=== PATIENT | female | born 1950 | race Caucasian/White ===

== ENCOUNTER → 2023-06-19 07:26 | Outpatient (REF) | payer MEDICARE, SELFPAY | LOC: PAVMRI 07:26 | PROVIDERS: ATTENDING PHYSICIAN Physician Assistant Surgical; FAMILY PHYSICIAN Internal Medicine | DX: M54.50 Low back pain, unspecified (principal) | CPT/HCPCS: 72148 ==

== ENCOUNTER 2023-07-20 16:08 | Emergency (ER) | payer MEDICARE, SELFPAY ==
[2023-07-20] VITALS (7 sets, daily range): BP systolic 148–172; BP diastolic 69–92; BMI 33.6
[2023-07-20 16:58] LABS: ALT (SGPT) 19 U/L (0-35); AST (SGOT) 30 U/L (14-36); Albumin 4.5 g/dl (3.5-5.0); Alkaline Phosphatase 44 U/L (38-126); Blood Urea Nitrogen 18 mg/dl (7-17); Calcium 9.2 mg/dl (8.4-10.2); Carbon Dioxide 19 mmol/L (22-30); Chloride 109 mmol/L (98-107); Estimated Creatinine Clearance 51 ml/min; Glucose 98 mg/dl (70-99); Sodium 138 mmol/L (135-145); Total Bilirubin 0.8 mg/dl (0.2-1.3); Total Protein 7.1 g/dl (6.3-8.2); eGFR 58.75
[2023-07-20 17:08] LABS: Troponin I < 0.012 ng/ml
[2023-07-20 17:09] LABS: % Basophils 0.7 % (0-2); % Eosinophils 1.5 % (0-6); % Immature Granulocytes 0.2 % (0-0.5); % Lymphocytes 39.7 % (20.5-51.1); % Monocytes 6.6 % (1.7-9.3); % Neutrophils 51.3 % (42.2-75.2); Absolute Basophils 0.1 10^3/uL (0-0.2); Absolute Eosinophils 0.1 10^3/uL (0-0.7); Absolute Lymphocytes 3.4 10^3/uL (1.2-3.4); Absolute Monocytes 0.6 10^3/uL (0.1-0.6); Absolute Neutrophils 4.4 10^3/uL (1.4-6.5); Hematocrit 42.9 % (37.0-47.0); Hemoglobin 14.8 g/dL (12.0-16.0); Mean Corp Hgb Conc. 34.5 g/dL (33.0-37.0); Mean Corpuscular Hgb 30.3 pg (27.0-31.0); Mean Corpuscular Volume 87.7 fL (81.0-99.0); Mean Platelet Volume 8.9 fL (7.4-10.4); Nucleated Red Blood Cells % 0 %; Platelet Count 425 10^3/uL (130-400); Red Blood Cell Count 4.89 10^6/uL (4.20-5.40); Red Cell Dist. Width 14.1 % (11.5-14.5); White Blood Cell Count 8.5 10^3/uL (4.8-10.8)
[2023-07-20] MEDS: CARAFATE SUSPENSION 1 GM PO ×2 (17:34→23:03)
--- NOTE | 2023-07-20 20:34 | ED.GENMED ---
History of Present Illness
<DO Dez Montoya Last Filed: 07/20/23 20:38>
General
Chief Complaint: Chest Pain
Source: patient
Time Seen by Provider: 07/20/23 16:28
Travel History
Have you had any contact with someone who has COVID-19?: No
Do you have any symptoms of coronavirus? Fever > 100 degrees, chills, cough, shortness of breath, sore throat, loss of taste or smell, muscle aches, or headache?: Yes
Symptoms:: SOB
History of Present Illness
History of Present Illness:
73-year-old female with a history of coronary disease as well as esophageal spasms who presents with chest pain that began on . The patient states at home she has tried Tums and nitroglycerin without relief. She states she continues to
feel this pressure in her chest. She states she first feels at her teeth and then noticed that her chest. She even went to the dentist to have her teeth checked and was told that it was normal. Today the symptoms persisted. No vomiting. No
shortness of breath.
Past History
<DO Dez Montoya Last Filed: 07/20/23 20:38>
Past History
ED Past Medical History: CAD (Vasospasm), GERD, HTN, Hypercholesterolemia, MA (Non-STEMI November 2014, cardiac cath showing nonobstructive coronary artery disease.), Hypothyroidism and Other (Osteoporosis, meningioma, Paresthesia,); Negative Asthma or
NIDDM
ED Past Surgical History: Cardiac (Cardiac catheterization November 2014 showing nonobstructive coronary artery disease.), Cholecystectomy and Other (Thyroidectomy, Minor breast surg)
Social History
Tobacco: Former smoker
Alcohol: Occasional
Drug: None
Personal:
Living: with family
Employment: Not employed
Family History
Family History: CAD; Negative Early CAD
Phy Exam
<DO Dez Montoya Last Filed: 07/20/23 20:38>
Physical Exam
Physical Exam:
CONSTITUTIONAL Patient alert and oriented to person, place and time. Well-appearing. Vital signs reviewed.
HEAD atraumatic, normocephalic.
EYES eyelids normal to inspection, Pupils equally round and reactive to light, Extraocular muscles intact, Conjunctiva normal, Sclera normal.
NECK normal range of motion, Trachea midline, no jugular venous distention.
RESPIRATORY CHEST No respiratory distress noted, Chest expansion equal, Bilateral breath sounds clear.
CARDIOVASCULAR regular rate and rhythm, Heart sounds normal.
ABDOMEN abdomen nontender, Bowel sounds normal. No distention.
BACK normal inspection, no obvious deformities
UPPER EXTREMITY range of motion normal, Motor strength normal, no cyanosis, no edema.
LOWER EXTREMITY range of motion normal, Motor strength normal, no cyanosis, no edema.
NEURO Speech normal, No focal motor deficits, Tavia coma scale 15, Memory normal, Cranial Nerves intact to screening exam.
SKIN skin warm, dry, and normal in color.
PSYCHIATRIC patient oriented to person place and time, Normal affect.
<Anitra Zheng, DO - Last Filed: 07/21/23 02:31>
Heart Score for Chest Pain Patients
STEMI patient?: No
History: Slightly or Non-Suspicious
ECG: Normal
Age: >/= 65 years
Risk Factors: >/= 3 Risk Factors or History of CAD
Troponin: </= Normal Limit
Heart Score for Chest Pain Patients: 4
Heart Score Risk: 20.3% MACE over next 6 weeks
Course
<Steven Loera, DO - Last Filed: 07/20/23 20:38>
Orders/Labs/Results
Orders:
Orders
07/20/23 16:09
Electrocardiogram (*1) Urgent
Reason for Study: Chest Pain
07/20/23 16:10
EKG- Treatment ONCE
07/20/23 16:30
Comprehensive Metabolic Panel Urgent
Troponin I Urgent
07/20/23 17:02
Complete Blood Count/With Diff Urgent
07/20/23 17:22
Sucralfate Suspension [Carafate Suspension] 1 gm PO NOW STA
07/20/23 17:23
CR Chest - 2 Views Urgent
Comment:
Reason For Exam: cp
07/20/23 18:37
CT Chest With Iv Contrast Urgent
Comment:
Reason For Exam: abnormal CXR, cavitary lesions, cp
07/20/23 22:33
Sucralfate Suspension [Carafate Suspension] 1 gm PO NOW STA
Abnormal Lab Results
07/20/23 07/20/23
16:30 17:02
Plt Count 425 H 10^3/uL
(130-400)
Chloride 109 H mmol/L
(98-107)
Carbon Dioxide 19 L mmol/L
(22-30)
BUN 18 H mg/dl
(7-17)
07/20/23 17:02
07/20/23 16:30
Vital Signs
Initial and Last Documented VS:
Initial Vital Signs
Temp Pulse Resp Pulse Ox
97.5 F 71 13 100
07/20/23 16:12 07/20/23 16:12 07/20/23 16:12 07/20/23 16:12
Last Documented Vital Signs
Temp Pulse Resp BP Pulse Ox
97.5 F 70 17 167/90 99
07/20/23 16:12 07/20/23 23:00 07/20/23 23:00 07/20/23 23:00 07/20/23 22:30
<Anitra Zheng, DO - Last Filed: 07/21/23 02:31>
Orders/Labs/Results
Orders:
Orders
07/20/23 16:09
Electrocardiogram (*1) Urgent
Reason for Study: Chest Pain
07/20/23 16:10
EKG- Treatment ONCE
07/20/23 16:30
Comprehensive Metabolic Panel Urgent
Troponin I Urgent
07/20/23 17:02
Complete Blood Count/With Diff Urgent
07/20/23 17:22
Sucralfate Suspension [Carafate Suspension] 1 gm PO NOW STA
07/20/23 17:23
CR Chest - 2 Views Urgent
Comment:
Reason For Exam: cp
07/20/23 18:37
CT Chest With Iv Contrast Urgent
Comment:
Reason For Exam: abnormal CXR, cavitary lesions, cp
07/20/23 22:33
Sucralfate Suspension [Carafate Suspension] 1 gm PO NOW STA
Abnormal Lab Results
07/20/23 07/20/23
16:30 17:02
Plt Count 425 H 10^3/uL
(130-400)
Chloride 109 H mmol/L
(98-107)
Carbon Dioxide 19 L mmol/L
(22-30)
BUN 18 H mg/dl
(7-17)
07/20/23 17:02
07/20/23 16:30
Vital Signs
Initial and Last Documented VS:
Initial Vital Signs
Temp Pulse Resp Pulse Ox
97.5 F 71 13 100
07/20/23 16:12 07/20/23 16:12 07/20/23 16:12 07/20/23 16:12
Last Documented Vital Signs
Temp Pulse Resp BP Pulse Ox
97.5 F 70 17 167/90 99
07/20/23 16:12 07/20/23 23:00 07/20/23 23:00 07/20/23 23:00 07/20/23 22:30
<Steven Loera DO - Last Filed: 07/20/23 20:38>
MDM/Problems Addressed
MDM/Problems Addressed:
Chest pain
<Steven Loera DO - Last Filed: 07/20/23 20:38>
*Radiology
Radiology exam reviewed: radiology read reviewed
*Pulse Oximetry
Patient hypoxic: no
*EKG
Interpreted by ED Provider?: Yes
Interpretation: normal
Rate: normal
Rhythm: sinus
Interval: normal interval
QRS Pattern: normal QRS
Ischemia: no ischemia
*Product Marketing Engineer Interpretation
Rate: normal
Interpretation: normal
Rhythm: sinus
*Critical Care Note
Total Time (30-74mins, 75-104mins- exclusive of procedures): Not Applicable
Data Reviewed
Source: patient
Prescriptions/Medications Considered But Not Given:
Consider nitroglycerin but do not suspect ACS
<Steven Loera, DO - Last Filed: 07/20/23 20:38>
Patient Management
Discussion with other providers: Radiologist (Case discussed with radiology. Given chest x-ray finding recommended CT)
Escalation/DeEscalation of care consider admission/obs:
Troponin negative despite several days of chest pain. EKG unremarkable. Symptoms mildly improved after Carafate. Await CT in light of abnormal chest x-ray. s/o to Dr Zheng pending CT
<Anitra Zheng DO - Last Filed: 07/21/23 02:31>
Update Note
Update Note:
07/20/2023 22:[address] of the chest shows a 1.8 cm solid pulmonary nodule in the right lung apex with adjacent groundglass component which is new compared to previous CT April 2006.
Diagnostic possibilities a right upper lobe lung cancer versus scarring versus pneumonia. There is no evidence of lymphadenopathy.
Patient has not had a cough nor fever, normal white blood cell count thus pneumonia is unlikely.
Current lower substernal chest pain appears more consistent with acid reflux and patient admits to moderate improvement after Carafate. I suspect the right upper lobe mass is an incidental finding and not related to lower substernal chest pain.
With ongoing chest pain for a number of days, unremarkable EKG and negative troponin, ACS is unlikely.
Patient has recently resumed twice daily PPI and recommend short course of Carafate which she has been prescribed in the past.
As far as pulmonary nodule, patient will require outpatient follow-up for further evaluation. As per radiologist report, pulmonary nodule advisory board hotline has been notified with these findings and I have recommended the patient follow-up with
her PCP, Dr. Sam as well.
She has been provided with a copy of the CT report as well as lab results.
ED Attending Note
<Steven Loera DO - Last Filed: 07/20/23 20:38>
-
Portions of this chart may have been created with voice recognition software.� Occasional wrong word or��sound alike� substitutions may have occurred due to the inherent limitations of voice recognition software.
Discharge Plan
Departure
Patient Disposition: Home (Routine Discharge)
Date of Disposition: 07/20/23
Time of Disposition: 22:42
Patient with high blood pressure during this ER visit?: No
Condition: Good
Discharge Problem:
Nonspecific chest pain, Esophageal reflux, RUL pulmonary nodule
Instructions: Acid Reflux and GERD in Adults (DC), Chest Pain DCA Follow Up
Prescriptions:
New
sucralfate [Carafate] 1 gram tablet
1 g PO QIDPRN PRN (Reason: acid reflux/chest pain) Qty: 120 0RF
No Action
levothyroxine 125 MCG tablet
150 mcg PO DAILY@1500
polyethylene glycol 3350 17 GRAMS powder in packet
17 grams PO DAILYPRN PRN (Reason: constipation)
psyllium husk (aspartame) [Metamucil Fiber Singles] 1 PACKET powder in packet
1 packet PO DAILYPRN PRN (Reason: constipation)
atorvastatin 40 MG tablet
40 mg PO QPM Qty: 30 11RF
pantoprazole 40 MG tablet,delayed release (DR/EC)
40 mg PO DAILY Qty: 30 11RF
ascorbic acid (vitamin C) [Vitamin C] 500 MG tablet
500 mg PO QPM
coenzyme Q10 [Co Q-10] 30 MG capsule
30 mg PO QPM
multivitamin with folic acid [Tab-A-Tuan] 1 TABLET tablet
1 tab PO QPM
zolpidem 10 MG tablet
10 mg PO HS
Patient Comments:
patient picker/puller on 12/18/20 #90
nitroglycerin 0.4 MG tablet, sublingual
0.4 mg sublingual [id number] PRN (Reason: chest pain) Qty: 30 1RF
Rx Instructions:
Please be cautious of taking nitro while on imdur.
ipratropium bromide 1 SPRAY spray,non-aerosol
2 spray intranasal TID
isosorbide mononitrate 60 MG tablet extended release 24 hr
60 mg PO HS
sennosides [senna] 1 TABLET tablet
1 tab PO DAILYPRN PRN (Reason: constipation)
lorazepam 1 MG tablet
1 mg PO [id number] PRN (Reason: anxiety or sleep)
Patient Comments:
patient picker/puller on 01/03/21 #90
acetaminophen 325 MG tablet
650 mg PO Q4HPRN PRN (Reason: mild pain)
sucralfate 1 GRAM tablet
1 g PO ACHS
ibuprofen 400 MG tablet
400 mg PO Q4HPRN PRN (Reason: mild pain)
alum-mag hydroxide-simeth [Mylanta Maximum Strength] 355 ML suspension
15 ml PO BIDPRN PRN (Reason: gerd)
aspirin 81 MG tablet,chewable
81 mg PO QPM
Referrals:
Arnaldo Boyer MD [Family Provider] - Call in 1-3 days for appt
Interventions
Interventions:
*Risk Screen - Suicide Last Done: 07/20/23 16:25
*General Assessment Last Done: 07/20/23 16:25
*Neglect/Abuse Screening Last Done: 07/20/23 16:25
ED- Fall Risk Assessment Last Done: 07/20/23 16:29
*ED COVID-19 Vaccine History Last Done: 07/20/23 16:25
*Nursing Disposition Last Done: 07/20/23 23:05
ED- Cardiac Assessment Last Done: 07/20/23 16:25
Discharge Date and Time
Discharge Date/Time: 07/20/23 23:06
== END 2023-07-20 23:06 | disposition home or self-care (01) ==
LOC: EMR 16:08
PROVIDERS: EMERGENCY PHYSICIAN Emergency Medicine; FAMILY PHYSICIAN Internal Medicine
DX: R07.9 Chest pain, unspecified (principal); R91.1 Solitary pulmonary nodule; K21.9 Gastro-esophageal reflux disease without esophagitis; Z87.891 Personal history of nicotine dependence
CPT/HCPCS: 99285; 71046; 71260; 80053; 84484; 85025; 93005; Q9967

== ENCOUNTER 2023-08-05 06:33 | Day surgery (SDC) | payer MEDICARE, SELFPAY ==
[2023-07-30 12:19] VITALS: BMI 32.7
[2023-08-05] VITALS (12 sets, daily range): BP systolic 124–149; BP diastolic 64–116; BMI 32.2
[2023-08-05] MEDS: MORPHINE SULFATE 1 MG IV ×2 (15:26→15:32)
[2023-08-05] MEDS: PHENERGAN WITH CODEINE SYRUP 5 ML PO (17:47)
[2023-08-05] MEDS: LIDOCAINE 4% PATCH 1 PATCH TOPICAL (17:51)
== END 2023-08-05 18:03 | disposition home or self-care (01) ==
LOC: SDS 06:33
PROVIDERS: ATTENDING PHYSICIAN Internal Medicine Critical Care Medicine
DX: D38.1 Neoplasm of uncertain behavior of trachea, bronchus and lung (principal); R91.1 Solitary pulmonary nodule; R06.02 Shortness of breath
CPT/HCPCS: 31629; 31623; 31652; 31627; 31624; 31654; 88172; 88173; 88305; 71045; 76000; 87015; 87070; 87102; 87116; 87205; 88112; 88177; 88333; 88334; 94640; C1887

== ENCOUNTER 2023-09-02 09:21 | Inpatient (IN) | payer MEDICARE, SELFPAY ==
[2023-08-27 08:37] VITALS: BMI 33.2
[2023-08-27 09:22] LABS: % Basophils 1.1 % (0-2); % Eosinophils 2.4 % (0-6); % Immature Granulocytes 0.5 % (0-0.5); % Lymphocytes 41.8 % (20.5-51.1); % Monocytes 8.3 % (1.7-9.3); % Neutrophils 45.9 % (42.2-75.2); Absolute Basophils 0.1 10^3/uL (0-0.2); Absolute Eosinophils 0.2 10^3/uL (0-0.7); Absolute Lymphocytes 3.5 10^3/uL (1.2-3.4); Absolute Monocytes 0.7 10^3/uL (0.1-0.6); Absolute Neutrophils 3.9 10^3/uL (1.4-6.5); Hematocrit 42.2 % (37.0-47.0); Hemoglobin 14.4 g/dL (12.0-16.0); Mean Corp Hgb Conc. 34.1 g/dL (33.0-37.0); Mean Corpuscular Hgb 30.3 pg (27.0-31.0); Mean Corpuscular Volume 88.7 fL (81.0-99.0); Mean Platelet Volume 10.4 fL (7.4-10.4); Nucleated Red Blood Cells % 0 %; Platelet Count 305 10^3/uL (130-400); Red Blood Cell Count 4.76 10^6/uL (4.20-5.40); Red Cell Dist. Width 13.5 % (11.5-14.5); White Blood Cell Count 8.4 10^3/uL (4.8-10.8)
[2023-08-27 09:36] LABS: Urine Albumin Negative (Neg - Trace); Urine Bilirubin Negative (Negative); Urine Character Clear (Clear); Urine Glucose Negative (Negative); Urine Ketone Negative (Negative); Urine Leukocyte Negative (Negative); Urine Nitrite Negative (Negative); Urine Occult Blood Trace (Negative); Urine Urobilinogen Negative (Neg - 1+)
[2023-08-27 09:37] LABS: Urine Color Yellow
[2023-08-27 09:53] LABS: Urine Amorphous Seen; Urine Squamous Cell 0-2 /LPF (Few)
[2023-08-27 09:54] LABS: Urine Red Blood Cell 0-2 /HPF (0-2); Urine White Cell 0-2 /HPF (0-5)
[2023-08-27 10:10] LABS: INR 1.02; PT 13.4 Sec (11.4-14.6)
[2023-08-27 10:11] LABS: APTT 26.3 Sec (23.4-35.0)
--- NOTE | 2023-08-27 10:40 | CM ---
CM met w/ patient during PATs for planned CT Surgery 09/01.
Pt. resides w/ spouse in a private, 2 story home. Functionally, patient is indep. w/ ADLs, mobility without the use of any assisted device.
Pt. drives.
Pt. has Rx plan and uses [facility] in [place] for prescription needs.
Reviewed pre and post op routines.
Soap, shower instructions and Thoracic book provided.
Discussed post op restrictions.
Reviewed post op MD appointment and visit from CT Transitional Care RN.
Plan for CT Surgery 09/01.
Anticipated DC plan is for home w/ CT Transitional Care RN.
CM to follow.
[2023-08-27 11:00] LABS: ALT (SGPT) 19 U/L (0-35); AST (SGOT) 24 U/L (14-36); Albumin 4.3 g/dl (3.5-5.0); Alkaline Phosphatase 50 U/L (38-126); Blood Urea Nitrogen 25 mg/dl (7-17); Calcium 9.4 mg/dl (8.4-10.2); Carbon Dioxide 26 mmol/L (22-30); Chloride 106 mmol/L (98-107); Direct Bilirubin 0.3 mg/dl (0.0-0.4); Estimated Creatinine Clearance 41 ml/min; Glucose 96 mg/dl (70-99); Potassium 4.4 mmol/L (3.5-5.1); Sodium 137 mmol/L (135-145); Total Bilirubin 0.8 mg/dl (0.2-1.3); Total Protein 6.6 g/dl (6.3-8.2); eGFR 47.21
[2023-08-27 11:58] LABS: Glycohemoglobin (HgbA1c) 5.6 % (4.0-5.6)
[2023-09-02] VITALS (17 sets, daily range): BP systolic 118–146; BP diastolic 57–94; BMI 33.2
--- NOTE | 2023-09-02 10:59 | W.CVOR.SURPR ---
CVOR Surgeon Immed Pre Op
-
I have examined this patient prior to performance of the scheduled procedure.
The patient's condition is unchanged from the time of the dictated/written History and
Physical and the patient is able to undergo the scheduled procedure.
RATS RUL + LN Dissection
[2023-09-02] MEDS: ANCEF IV (13:10)
[2023-09-02 13:16] LABS: Urine Albumin Negative (Neg - Trace); Urine Bilirubin Negative (Negative); Urine Character Clear (Clear); Urine Color Yellow; Urine Glucose Negative (Negative); Urine Ketone Negative (Negative); Urine Leukocyte Negative (Negative); Urine Nitrite Negative (Negative); Urine Occult Blood Negative (Negative); Urine Specific Gravity 1.005 (<1.030); Urine Urobilinogen Negative (Neg - 1+)
--- NOTE | 2023-09-02 15:50 | W.PN.CT.SURG ---
CT Surgery Operative Note
-
THORACIC SURGERY OPERATIVE REPORT
Preoperative Diagnosis: Atypical cells highly suspicious for malignancy of the right upper lobe lesion
Postoperative Diagnosis: Same
Procedure(s) Performed:
1. Robotic assisted thoracic surgery (RATS) right upper lobectomy
2. Radical lymph node dissection
3. Cryoablation of intercostal spaces 4, 5, 6, 7 for 3 minutes each
4. Intercostal nerve block with bupivacaine mixture, intercostal spaces 4, 5, 6, 7, 8
Date of Surgery: 09/02/2023
Comorbidities:
1. Right upper lobe mass with groundglass opacity, atypical cells highly suspicious for malignancy
2. Meningioma
3. Multinodular goiter status post subtotal thyroidectomy
4. GERD
5. Osteoporosis
6. NSTEMI, CAD
7. Hyperlipidemia
8. Hypertension
9. Morbidly obese with a BMI greater than 30
10. History of COVID infection
11. Chronic Intercostal Pain
Attending Surgeon: Adan Rainey MD, MS
Assistants: Argelia Freire PA-C (present and necessary to communications assistant, exchanging robotic instruments, retraction, suction, exposure, suture management, and wound closure under my direction)
Anesthesiology: George Green MD and Lisa Ayoub CRNA
Scrub and Circulating RNs: Patricia Correa, RN and Bethanie Valencia, RN, Peggy Durbin RN and Radha Thorne RN
Anesthesia: Dual Lumen GETA
EBL: 80 cc
Products: None
Indication(s) for Procedures: This is a 73-year-old female with a history of right upper lobe nodule with groundglass opacity. She underwent robotic endoluminal bronchoscopy which returned with atypical cells hide suspicious for malignancy. Due to
the size of the mass, she was offered right lobectomy with lymph dissection due to the level of suspicion of malignancy. She accepted those risk and so we proceeded.
Findings: Overall, no gross evidence of metastatic disease in the right hemithorax she had a poorly developed fissure between the right upper lobe and right middle lobe. The fissure between the right upper lobe and right lower lobe was moderately
developed. Intercostal nerve block was performed with 5 cc of bupivacaine mixture at the listed intercostal spaces. Cryoablation of the intercostal nerves was also performed in order to help with pain control postoperatively. Several lymph nodes
were taken from various stations. At the developed a fissure between the right upper and right lower lobes using bipolar cautery and vessel sealer as there were numerous branching vessels that bridge the fissure. The space between the right upper
and right middle lobe was developed using green load staplers directed towards the branch point of the right upper lobe and right middle lobe veins. After dividing the vein and opening of the fissure I was able to isolate the truncus pulmonary
artery branch leading to the right upper lobe. This was transected with a white load stapler. This left just the right upper lobe bronchus. This was developed more distally and then clamped and an inflation test was performed which demonstrated
unobstructed flow to the remaining right middle and right lower lobes. This was transected with a green load stapler. A bubble study was performed after filling the chest with saline and several areas of raw parenchyma had minor air leaks. This
was reinforced with CoSeal x 2 layers. At the inclusion of the case, there was no significant tidal volume loss and very intermittent +1 air leak while on positive pressure ventilation.
Specimen(s):
Station 9, x 2 nodes
Station 8, x 1 nodes
Station 10, x 1 nodes
Station 11, x 3 nodes
Station 4, x 4 nodes
Station 7, x 3 nodes
Right upper lobe
Description of Procedure: The patient was taken to the operating room. Induction via general anesthesia with endotracheal intubation was performed and peripheral venous access and arterial monitoring were inserted. Their identity and procedure to be
performed were verified and they were positioned with the right side up on the operating table. The patient was then prepped and draped in a sterile fashion. A preoperative time-out was performed with all members of the team present. A Veress
needle was used to insufflate the chest after isolating the lung. An 8 mm port was placed in the midaxillary line at approximately the eighth intercostal space and confirmed to be intrathoracic without significant pulmonary injury. The chest was
surveyed for any evidence of metastatic disease. Patient tolerate insufflation without complication. 2 additional 12 mm trocars were placed on either side under camera guidance and a third 8 mm trocar was placed along the back. A 12 mm miller head assistant wet process
port was placed in the 11th intercostal space above the insertion of the diaphragm. An intercostal nerve block was performed at intercostal spaces 4 through 8.
The thoracic cavity was inspected for evidence of metastatic disease. None was observed. We started with mobilization of the inferior pulmonary ligament. We worked our way clockwise dissecting out the hilum and harvest any lymph nodes identified.
As described above, the fissures were poorly developed. I had to develop the patient between the right upper lobe using a combination of bipolar cautery and vessel sealer. I then created the fissure between the right upper and right middle lobe
using green load staplers firing towards the bifurcation of the right upper lobe right middle lobe veins. The pulmonary veins were first divided with white load staplers followed by isolation of the major truncus pulmonary artery leading to the
right upper lobe the pulmonary arteries again using a white load stapler. I clamped the bronchus and performed a test inflation which demonstrated unobstructed flow into the remaining right middle and lower lobes. The specimen was displaced toward
the apex while a chest tube was inserted and placed laterally towards the apex. At this point cryoablation was performed at the base listed above. A bubble test was performed to identify any air leaks. CoSeall was used to reinforce the staple
lines, raw parenchyma and hilum. The right upper lobe was then placed into a specimen bag and extracted from the chest cavity. After confirming hemostasis, the lung was fully inflated and all ports were removed. The right middle lobe was
visualized to be inflating and not torsed. Incisions were closed in 3 layers including the fascia, dermal, and epidermis. Additional local anesthesia was injected into all incision sites. The skin wound was cleansed and sealed with Dermabond glue.
All instrument, sponge, and needle counts were confirmed to be correct x 2 at the end of the operation. The patient was transferred to the cardiac intensive care unit extubated in critical but stable condition.
I, Dr. Adan Raieny, was present, scrubbed for, and performed all critical elements of this procedure.
Adan Rainey MD, MS
Cardiothoracic Surgeon
[facility]
This operative dictation was created using the [employer] dictation system. Please excuse any grammatical, typographical, or 'sound alike' errors
[2023-09-02] MEDS: DILAUDID 0.5 MG IV ×3 (16:22→18:08)
[2023-09-02 17:15] LABS: Hematocrit 39.1 % (37.0-47.0); Hemoglobin 13.5 g/dL (12.0-16.0); Mean Corp Hgb Conc. 34.5 g/dL (33.0-37.0); Mean Corpuscular Volume 89.7 fL (81.0-99.0); Mean Platelet Volume 8.9 fL (7.4-10.4); Platelet Count 414 10^3/uL (130-400); Red Blood Cell Count 4.36 10^6/uL (4.20-5.40); Red Cell Dist. Width 13.2 % (11.5-14.5); White Blood Cell Count 17.3 10^3/uL (4.8-10.8)
[2023-09-02 17:37] LABS: Blood Urea Nitrogen 17 mg/dl (7-17); Calcium 8.4 mg/dl (8.4-10.2); Carbon Dioxide 25 mmol/L (22-30); Chloride 105 mmol/L (98-107); Estimated Creatinine Clearance 55 ml/min; Glucose 167 mg/dl (70-99); Potassium 4.1 mmol/L (3.5-5.1); Sodium 135 mmol/L (135-145); eGFR > 60.00
[2023-09-02] MEDS: ANCEF 10 IV (17:48)
[2023-09-02] MEDS: TORADOL 15 MG IV (17:53)
[2023-09-02] MEDS: NEURONTIN 300 MG PO ×2 (18:11→22:45)
[2023-09-02] MEDS: PERCOCET 5/325 1 TABLET PO (18:11)
[2023-09-02] MEDS: FLEXERIL 5 MG PO ×2 (18:12→22:45)
[2023-09-02] MEDS: HEPARIN 5000 UNITS SC ×2 (18:21→23:06)
--- NOTE | 2023-09-02 19:15 | PTCARENOTE ---
Rec'd pt from PACU into room 2240. Pt c/o pain. Toradol given and Oxycodone given. Pt with Rt posterior chest tube to -20cm suction with minimum bloody drainage. No air leak noted. Pt on 4l n/c oxygen. Pulse ox 97. Admission history obtained from
patients and daughter. See worklist for VS/I and O and assessments.
[2023-09-02] MEDS: LOPRESSOR 12.5 MG PO (19:51)
[2023-09-02] MEDS: SENOKOT-S 1 TABLET PO (19:52)
[2023-09-02] MEDS: ANCEF 5 IV (19:52)
[2023-09-02] MEDS: BUSPAR 10 MG PO (19:52)
[2023-09-02] MEDS: LIDOCAINE 4% PATCH 1 PATCH TOPICAL (21:00)
--- NOTE | 2023-09-02 21:20 | PTCARENOTE ---
Pt AOX3. Drowsy but arousable to voice. Closed chest tube drainage system to wall suction at -20cm w/ serosanguinous drg. Air leak level one noted. No crepitus/tidaling noted. Dsg is intact w/ a small amt of old drg noted. Gilberto BARR at bedside. Pt
c/o pain at CT site 01/11. Lidocaine patch ordered per Gilberto and applied to back. Pt w/ shallow breaths and sating at 100% 6L O2 NC. Currently resting in bed; call rain w/in reach.
[2023-09-02] MEDS: CARAFATE 1 GRAM PO (22:44)
[2023-09-02] MEDS: ROXICODONE 5 MG PO (22:44)
[2023-09-02] MEDS: AMBIEN 5 MG PO (22:45)
[2023-09-03] VITALS (8 sets, daily range): BP systolic 97–159; BP diastolic 52–84
[2023-09-03] MEDS: TYLENOL 650 MG PO (03:28)
[2023-09-03] MEDS: ANCEF 5 IV ×2 (03:29→11:12)
[2023-09-03 03:40] LABS: Hematocrit 40.1 % (37.0-47.0); Hemoglobin 13.4 g/dL (12.0-16.0); Mean Corp Hgb Conc. 33.4 g/dL (33.0-37.0); Mean Corpuscular Hgb 30.7 pg (27.0-31.0); Mean Platelet Volume 9.1 fL (7.4-10.4); Platelet Count 417 10^3/uL (130-400); Red Blood Cell Count 4.36 10^6/uL (4.20-5.40); Red Cell Dist. Width 12.9 % (11.5-14.5); White Blood Cell Count 15.1 10^3/uL (4.8-10.8)
--- NOTE | 2023-09-03 03:43 | PTCARENOTE ---
Pt OOB to bedside commode w/ 3 person assist. Gilberto BARR at beside. Pt voided 250cc clear yellow urine. C/o pain at CT site 10/11. Tylenol administered. Weaned O2 to 2L NC sating at 100%. Labs drawn and sent. EKG obtained. Pt back in bed; call rodrigez
w/in reach.
[2023-09-03 04:01] LABS: Blood Urea Nitrogen 18 mg/dl (7-17); Calcium 8.8 mg/dl (8.4-10.2); Carbon Dioxide 25 mmol/L (22-30); Chloride 104 mmol/L (98-107); Estimated Creatinine Clearance 55 ml/min; Glucose 130 mg/dl (70-99); Potassium 4.8 mmol/L (3.5-5.1); Sodium 134 mmol/L (135-145); eGFR > 60.00
--- NOTE | 2023-09-03 06:13 | W.PN.CT ---
Today's Communication / Plan
-
-pod #1
-no issues overnight
-R pleur CT output 40/90 in 12/24 hrs, on -20 suction. + air leak noted while sitting on commode
-follow daily CXR- small R apical PTX, some subq emphysema on my review - improved from 09/01- follow Radiology report
-sq Heparin for DVT prophylaxis
-current meds (ASA, Lipitor, Lopressor, Imdur, Protonix). Neurontin, Flexeril, Shirley, Toradol for pain control
-encourage IS, OOB
Assessment / Plan
-
- Atypical cells highly suspicious for malignancy of the right upper lobe lesion- s/p Robotic assisted thoracic surgery (RATS) right upper lobectomy; Radical lymph node dissection by Dr. Rainey on 09/02/23, pod #1
- Right upper lobe mass with ground glass opacity, atypical cells highly suspicious for malignancy
- Meningioma
- Multinodular goiter- status post subtotal thyroidectomy
- GERD
- Osteoporosis
- NSTEMI, CAD, hx coronary artery spasm
- Hyperlipidemia
- Hypertension
- Class 1 obesity (BMI 33)
- Chronic thrombocytosis
- History of COVID infection
- Chronic Intercostal Pain/ Cervical disc dz
- Hx diverticulitis, constipation
- Cholecystectomy 1996
- Anxiety
Discussed patient care with: Nursing and Care Team
Subjective
Procedure
s/p Robotic assisted thoracic surgery (RATS) right upper lobectomy; Radical lymph node dissection by Dr. Rainey on 09/02/23
-
Date of Service: September 03, 2023
Objective Data
-
PT 13.4 Sec (11.4-14.6) 08/27/23 08:58
INR 1.02 08/27/23 08:58
APTT 26.3 Sec (23.4-35.0) 08/27/23 08:58
Vital Signs
Vital Signs
Temp Pulse Resp BP Pulse Ox
97.6 F 72 16 136/75 98
09/02/23 23:00 09/02/23 21:15 09/02/23 23:00 09/02/23 21:00 09/02/23 23:00
CT Intake/Output/Weight
09/02/23 09/02/23 09/03/23
06:59 18:59 06:59
Intake Total 920 / 920
Balance 920 / 920
SaO2: 98
Physical Exam
-
General: Awake and AOx3
Cardiovascular: No Murmurs and No Rub
Respiratory: Decreased Breath Sounds (at bases, + crackles on R side. No wheeze)
Incision: Clean, Dry and Dressing Intact
Extremities: Other (trace edema b/l, 2+ DP)
Data Reviewed
-
Lab Results: Results Reviewed
Medications: Active Meds Reviewed
Chest X-Ray: Report Reviewed and Image Reviewed
ECG: Report Reviewed and Image Reviewed
[2023-09-03] MEDS: SYNTHROID 150 MCG PO (06:18)
[2023-09-03] MEDS: CARAFATE 1 GRAM PO ×4 (07:28→21:24)
[2023-09-03] MEDS: VITAMIN C 500 MG PO (08:08)
[2023-09-03] MEDS: NEURONTIN 300 MG PO ×3 (08:08→22:47)
[2023-09-03] MEDS: LIPITOR 40 MG PO (08:09)
[2023-09-03] MEDS: FLEXERIL 5 MG PO ×3 (08:09→21:24)
[2023-09-03] MEDS: LOW STRENGTH ASPIRIN 81 MG PO (08:10)
[2023-09-03] MEDS: IMDUR (EXTENDED RELEASE) 60 MG PO (08:13)
[2023-09-03] MEDS: PROTONIX 40 MG PO (08:13)
[2023-09-03] MEDS: LOPRESSOR 12.5 MG PO ×2 (08:13→19:13)
[2023-09-03] MEDS: THERAGRAN 1 TABLET PO (08:13)
[2023-09-03] MEDS: BUSPAR 10 MG PO ×2 (08:14→19:13)
[2023-09-03] MEDS: LIDOCAINE 4% PATCH 1 PATCH TOPICAL (08:15)
[2023-09-03] MEDS: HEPARIN 5000 UNITS SC ×3 (08:15→23:51)
[2023-09-03] MEDS: TORADOL 15 MG IV ×2 (08:22→19:14)
[2023-09-03] MEDS: SENOKOT-S 1 TABLET PO ×2 (08:31→19:13)
[2023-09-03] MEDS: LASIX 20 MG IV (09:56)
--- NOTE | 2023-09-03 10:07 | CON.PUL ---
Consultation
Consultation Request
Date/Time Consultation Requested: 09/01
Date/Time Consultation Performed: 09/02
Reason for Consultation: Post robotic lobectomy
Medical History
-
History of Present Illness:
History obtained from patient and family members at bedside, reviewing inpatient and outpatient records. Patient is a pleasant 73-year-old female who presented with atypical chest pain in July 2023. At that time, chest x-ray and CT chest revealed
abnormal right upper lobe nodule. Patient underwent bronchoscopy, rare highly atypical cells noted suspicious for malignancy. Patient is now status post robotic assisted thoracic surgery right upper lobectomy with radical lymph node dissection.
We are asked to help from pulmonary standpoint presently patient is feeling well. Chest tube pain is manageable. She is performing incentive spirometry at bedside. She denies any nausea, abdominal pain, shortness of breath. She appears to be in
good spirits
.
PMH: Hypertension, hyperlipidemia, history of coronary disease with coronary spasm, osteoporosis, GERD, multinodular goiter with subtotal thyroidectomy, history of meningioma, chronic thrombocytosis, history of diverticulitis, cholecystectomy 1996
Past Medical History
Past Medical History: None (See above)
Past Surgical History: None (See above)
Social History
Tobacco: Former Smoker ([id number], quit 40 years ago. Denies obvious asbestos or radon exposure)
Alcohol: None
Drug: None
Living: Alone
Employment: Retired
Family History
Family History: Other (Family history negative for lung disease, blood clots, pulmonary fibrosis, lung cancer. Sister with Cabrera's esophagitis. There is a family history of stroke)
Allergies / Home Medications
Allergies
Allergy/AdvReac Type Severity Reaction Status Date / Time
bacitracin Allergy Rash Verified 09/02/23 09:34
[From Neosporin
([id number])]
bacitracin zinc Allergy Rash Verified 09/02/23 09:34
[From Neosporin
([id number])]
erythromycin base Allergy Rash Verified 09/02/23 16:25
[From Erythrocin]
neomycin sulfate Allergy Rash Verified 09/02/23 09:34
[From Neosporin
([id number])]
polymyxin B Allergy Rash Verified 09/02/23 09:34
[From Neosporin
([id number])]
Home Medications
�Medication �Instructions �Recorded �Confirmed �Last Taken �Type
levothyroxine 125 mcg tablet 150 mcg PO DAILY 11/22/14 09/02/23 09/02/23 00:00 History
pantoprazole 40 mg tablet,delayed 40 mg PO DAILY ##30 11/24/14 09/02/23 09/02/23 00:00 Rx
release
ascorbic acid (vitamin C) 500 mg 500 mg PO DAILY 02/06/15 09/02/23 3 Days Ago History
tablet (Vitamin C) ~08/30/23
coenzyme Q10 30 mg capsule (Co 30 mg PO DAILY 02/06/15 09/02/23 3 Days Ago History
Q-10) ~08/30/23
zolpidem 10 mg tablet 10 mg PO HS 02/06/15 09/02/23 09/02/23 00:00 History
isosorbide mononitrate 60 mg 60 mg PO DAILY 07/15/17 09/02/23 09/01/23 20:00 History
tablet,extended release 24 hr
lorazepam 1 mg tablet 1 mg PO PRN PRN anxiety or sleep 03/13/21 09/02/23 09/02/23 00:00 History
aspirin 81 mg chewable tablet 81 mg PO DAILY 03/20/21 09/02/23 1 Week Ago History
~08/26/23
sucralfate 1 gram tablet 1 g PO QID 03/20/21 09/02/23 09/01/23 15:00 History
atorvastatin 40 mg tablet (Lipitor) 40 mg PO DAILY 07/31/23 09/02/23 09/01/23 20:00 History
buspirone 10 mg tablet 10 mg PO BID 07/31/23 09/02/23 09/01/23 20:00 History
melatonin 3 mg tablet 3 mg PO HS PRN insomnia 07/31/23 09/02/23 09/02/23 00:00 History
multivitamin 1 tab PO DAILY 07/31/23 09/02/23 1 Week Ago History
~08/26/23
acetaminophen 500 mg tablet 1,000 mg PO Q6H PRN pain 08/05/23 09/02/23 3 Days Ago History
~08/30/23
nitroglycerin 0.4 mg sublingual 0.4 mg sublingual DIRECTED PRN 09/02/23 09/02/23 1 Month Ago History
tablet chest pain ~08/03/23
Review of Systems
-
All other systems: Negative unless noted
Vitals / Labs / Diagnostic Testing
Vital Signs
Temp Pulse Resp BP Pulse Ox
97.7 F 66 16 119/74 95
09/03/23 07:30 09/03/23 07:45 09/03/23 07:30 09/03/23 07:32 09/03/23 07:30
Lab Data
09/03/23 03:19
09/03/23 03:19
Diagnostic Testing:
Physical Exam
-
HEENT: Normocephalic and Anicteric
Cardiovascular: S1/S2, Regular Rhythm, Murmur (n), Rub (n), Peripheral Edema (n) and Calf Tenderness (n)
Respiratory: Wheeze (n), Rales (n), Rhonchi (n), Non-Labored Respirations and Other (Chest tube with intermittent air leak)
GI: Soft, Non Distended and Non Tender
Neurology: Awake, Alert, Oriented and No Motor Deficits
Skin: Good Color and Other (No clubbing, cyanosis)
General: Comfortable
Assessment
-
73-year-old female with distant tobacco history, presents with atypical chest pain, now improved, found to have right upper lobe nodule 2 cm with suspicious bronchoscopy, now status post robotic assisted thoracic surgery with right upper lobectomy
09/02/2023
S/p robotic RULectomy, radical lymph node dissection
09/02/2023
Right upper lobe nodule, 2 cm, PET avid
Highly suspicious for malignancy per robotic bronchoscopy 08/05/2023
Mild restrictive lung disease, TLC 68%
isolated moderate gas exchange defect, DLCO 50%
Mild leukocytosis
Conditions present prior to admission
Coronary disease, vaso spasm
Hypertension/hyperlipidemia
[id number] history of smoking quit 1979
Multinodular goiter, thyroidectomy subtotal
History of meningioma
GERD
Osteoporosis
Plan/recommendations
At this time, patient appears to be comfortable, pain appears to be controlled, patient in good spirits. Family at bedside
Intermittent chest leak noted
Pathology pending
Bronchoscopy suspicious for malignancy
PET scan without evidence of extrapulmonary disease
Moving forward
Continue with pain control per CT surgery
Chest tube with intermittently, small right apical pneumothorax
Left lower lobe atelectasis noted
Incentive spirometry demonstrated at bedside
DVT prophylaxis: Subcutaneous heparin
GI prophylaxis: Protonix
Reviewed above with patient, family at bedside
Will follow
[2023-09-03] MEDS: ROXICODONE 5 MG PO ×2 (10:45→17:42)
--- NOTE | 2023-09-03 11:12 | CM ---
CM following for DC planning needs.
Pt. is POD#1 from RU Lobectomy.
Prior to admission, patient resides in a 2 story home without any steps to enter.
Pt. was completely indep. prior to admission.
DC plan is anticipated for home w/ CT Transitional Care RN.
CM will cont. to follow.
--- NOTE | 2023-09-03 18:25 | PTCARENOTE ---
Pt continues with pain at chest tube site. Relief obtained with Toradol and Roxicodone. Pt assissted oob to the BSC and to the chair for lunch. Pt tolerated oob well. Encouraged to use IS. Denies any sob on RA.
--- NOTE | 2023-09-03 22:30 | PTCARENOTE ---
Assumed care of patient at change of shift. Pt AAOx3, tele monitor shows SR-sinus kristin, VSS. Patient sating 94-98% RA, denies any SOB. Lungs decreased right base and shallow respirations. Chest tube remains to wall suction at -20cm and draining
serosanguineous drainage. No crepitus noted. Patient does have a level one air leak. Gilberto BARR made aware. CT dressing changed. This RN cleaned site w/ CHG and applied drainage sponge w/ a Tegaderm.
Patient c/o right sided discomfort near chest tube. She states ' It feels like I've been bunched'. Pt reports it hurts w/ movement, being touched or the slightest change in movement. Site remains intact. IV Toradol administered--see MAR for further
details. Gilberto BARR made aware. Call rodrigez in reach.
[2023-09-03] MEDS: AMBIEN 5 MG PO (23:52)
[2023-09-04] VITALS (10 sets, daily range): BP systolic 90–124; BP diastolic 58–88; BMI 33.7
[2023-09-04] MEDS: LOPRESSOR 2.5 MG IV ×2 (02:26→02:42)
[2023-09-04] MEDS: CORDARONE 103 MG IV (02:45)
[2023-09-04 03:10] LABS: Hematocrit 35.6 % (37.0-47.0); Hemoglobin 12.2 g/dL (12.0-16.0); Mean Corp Hgb Conc. 34.3 g/dL (33.0-37.0); Mean Corpuscular Hgb 30.2 pg (27.0-31.0); Mean Corpuscular Volume 88.1 fL (81.0-99.0); Mean Platelet Volume 9.3 fL (7.4-10.4); Platelet Count 411 10^3/uL (130-400); Red Blood Cell Count 4.04 10^6/uL (4.20-5.40); Red Cell Dist. Width 13.3 % (11.5-14.5)
[2023-09-04] MEDS: TORADOL 15 MG IV (03:24)
[2023-09-04] MEDS: CORDARONE 518 MG IV (03:25)
[2023-09-04 03:32] LABS: Blood Urea Nitrogen 37 mg/dl (7-17); Calcium 8.3 mg/dl (8.4-10.2); Carbon Dioxide 25 mmol/L (22-30); Chloride 102 mmol/L (98-107); Estimated Creatinine Clearance 41 ml/min; Glucose 113 mg/dl (70-99); Magnesium 2.4 mg/dl (1.6-2.3); Potassium 4.2 mmol/L (3.5-5.1); Sodium 132 mmol/L (135-145); eGFR 47.21
--- NOTE | 2023-09-04 04:02 | PTCARENOTE ---
At approx 02:13 patient went into Afib w/ RVR. Patient asymptomatic and denies any palpitations. BP 108/69. HR fluctuating from 80-140s at rest. Gilberto BARR made aware and at bedside. EKG Obtained. Labs ordered and collected. Gilberto BARR
placed orders for a total of 5mg of IV Lopressor along w/ Amiodarone bolus. Followed by initiating an amiodarone gtt. See MAR for further details.
Post medication administration. Pt fluctuating between Afib and SR. HR high 70's-120's. Patient aware of POC, call rodrigez in reach.
--- NOTE | 2023-09-04 04:27 | W.PN.CT ---
Today's Communication / Plan
-
-pod #2
-went into a-fib 110s at 2:15 am (no prior hx) - tx with 2.5 iv Lopressor x2, Amio bolus and drip (pt has midline iv). Increased po Lopressor 25 bid
-R pleur CT on -20 sxn with +1 air leak, put out 105 cc serosang fluid overnight
-follow daily CXR
-held Toradol d/t elevated Cr - 1.2 today (0.9 preop)- follow
-continue sq Heparin for DVT prophylaxis
-encourage IS, OOB
Assessment / Plan
-
- Atypical cells highly suspicious for malignancy of the right upper lobe lesion- s/p Robotic assisted thoracic surgery (RATS) right upper lobectomy; Radical lymph node dissection by Dr. Rainey on 09/02/23, pod #2
- Right upper lobe mass with ground glass opacity, atypical cells highly suspicious for malignancy
- Meningioma
- Multinodular goiter- status post subtotal thyroidectomy
- GERD
- Osteoporosis
- NSTEMI, CAD, hx coronary artery spasm
- Hyperlipidemia
- Hypertension
- Class 1 obesity (BMI 33)
- Chronic thrombocytosis
- History of COVID infection
- Chronic Intercostal Pain/ Cervical disc dz
- Hx diverticulitis, constipation
- Cholecystectomy 1996
- Anxiety
- Acute postop a-fib 110s on 09/03 (new dx) - tx with iv Lopressor x2, Amio bolus and drip
- ANASTASIA- will hold Toradol
- Acute postop hyponatremia
Discussed patient care with: Nursing and Care Team
Subjective
Procedure
s/p Robotic assisted thoracic surgery (RATS) right upper lobectomy; Radical lymph node dissection by Dr. Rainey on 09/02/23
-
Date of Service: September 04, 2023
Objective Data
-
PT 13.4 Sec (11.4-14.6) 08/27/23 08:58
INR 1.02 08/27/23 08:58
APTT 26.3 Sec (23.4-35.0) 08/27/23 08:58
Vital Signs
Vital Signs
Temp Pulse Resp BP Pulse Ox
98.2 F 122 20 124/88 98
09/03/23 23:52 09/04/23 02:42 09/03/23 23:52 09/04/23 02:42 09/03/23 23:52
CT Intake/Output/Weight
09/03/23 09/03/23 09/04/23
06:59 18:59 06:59
Output Total 290 / 290 800 / 1000 200 / 1000
Balance -290 / 630 -800 / -1000 -200 / -1000
SaO2: 98
Physical Exam
-
General: Awake and AOx3
Cardiovascular: Irregular rate & rhythm, No Murmurs and No Rub
Respiratory: Decreased Breath Sounds (crackles on R side. No wheeze. L side is clear)
Incision: Clean, Dry and Intact
Extremities: Other (trace edema)
Data Reviewed
-
Lab Results: Results Reviewed
Medications: Active Meds Reviewed
Chest X-Ray: Report Reviewed and Image Reviewed
ECG: Report Reviewed and Image Reviewed
[2023-09-04] MEDS: SYNTHROID 150 MCG PO (05:46)
--- NOTE | 2023-09-04 06:33 | PTCARENOTE ---
Patient converted back to sinus kristin at approximately 05:46. Gilberto BARR made aware. IV Amiodarone gtt infusing at 1mg/min. Will pass along to day shift RN.
[2023-09-04] MEDS: CARAFATE 1 GRAM PO ×4 (07:36→21:20)
[2023-09-04] MEDS: NEURONTIN 300 MG PO ×3 (07:37→21:22)
[2023-09-04] MEDS: SENOKOT-S 1 TABLET PO ×2 (07:37→19:51)
[2023-09-04] MEDS: HEPARIN 5000 UNITS SC ×3 (07:38→22:52)
[2023-09-04] MEDS: LOPRESSOR 25 MG PO (07:38)
[2023-09-04] MEDS: VITAMIN C 500 MG PO (07:38)
[2023-09-04] MEDS: PROTONIX 40 MG PO (07:38)
[2023-09-04] MEDS: BUSPAR 10 MG PO ×2 (07:38→19:51)
[2023-09-04] MEDS: FLEXERIL 5 MG PO ×3 (07:38→21:22)
[2023-09-04] MEDS: LIPITOR 40 MG PO (07:38)
[2023-09-04] MEDS: THERAGRAN 1 TABLET PO (07:38)
[2023-09-04] MEDS: LOW STRENGTH ASPIRIN 81 MG PO (07:38)
[2023-09-04] MEDS: LIDOCAINE 4% PATCH 1 PATCH TOPICAL (07:39)
[2023-09-04] MEDS: IMDUR (EXTENDED RELEASE) 60 MG PO (07:40)
[2023-09-04] MEDS: ROXICODONE 5 MG PO ×3 (08:19→21:21)
--- NOTE | 2023-09-04 11:00 | CM ---
CM following for DC planning needs.
Met w/ patient at bedside. Pt. reports that she is in discomfort with her chest tubes but otherwise well.
DC plan is for home w/ CT Transitional Care RN.
CM will cont. to follow.
--- NOTE | 2023-09-04 16:26 | W.PN.PUL3 ---
Today's Communication / Plan
-
Continue with pain control
Chest tube to waterseal per CT surgery
Await pathology
DVT prophylaxis
Follow-up with Dr. Galeas close discharge
We will sign off. Please call with questions
Assessment
-
73-year-old female with distant tobacco history, presents with atypical chest pain, now improved, found to have right upper lobe nodule 2 cm with suspicious bronchoscopy, now status post robotic assisted thoracic surgery with right upper lobectomy
09/02/2023
S/p robotic RULectomy, radical lymph node dissection
09/02/2023
Right upper lobe nodule, 2 cm, PET avid
Highly suspicious for malignancy per robotic bronchoscopy 08/05/2023
Mild restrictive lung disease, TLC 68%
isolated moderate gas exchange defect, DLCO 50%
Mild leukocytosis
Conditions present prior to admission
Coronary disease, vaso spasm
Hypertension/hyperlipidemia
42-vval-hhou history of smoking quit 1979
Multinodular goiter, thyroidectomy subtotal
History of meningioma
GERD
Osteoporosis
Plan/recommendations
At this time, patient appears to be comfortable, patient in good spirits.
Primary complaint is chest tube discomfort
Episode of nausea this morning, has not recurred
Short period of atrial fibrillation yesterday, now in sinus rhythm. On beta-bob and amiodarone
Chest x-ray this afternoon with persistent right apical pneumothorax
Pathology pending
Bronchoscopy suspicious for malignancy
PET scan without evidence of extrapulmonary disease
Moving forward
Continue with pain control per CT surgery
Chest tube with intermittently, small right apical pneumothorax
Currently under waterseal
Chest tube management per CT surgery
Left lower lobe atelectasis noted
Incentive spirometry demonstrated at bedside
DVT prophylaxis: Subcutaneous heparin
GI prophylaxis: Protonix
Await pathology results
Reviewed above with patient
Follow-up with Dr. Galeas postdischarge.
We will sign off. Please call with questions
Subjective Data
-
Date of Service:
Date of Service: September 04, 2023
Subjective:
Patient primary complaint is chest tube discomfort otherwise feels well. Had episode of nausea with lightheadedness this morning with movement, has not recurred. New onset atrial fibrillation noted, now converted to sinus rhythm, beta-bob and
amiodarone therapy noted
Objective Data
Data Reviewed
Vital Signs / I&O / Oxygen:
Vital Signs
Temp Pulse Resp BP Pulse Ox
97.8 F 55 16 94/58 95
09/04/23 15:26 09/04/23 15:26 09/04/23 15:26 09/04/23 14:02 09/04/23 15:26
Intake and Output
09/03/23 09/04/23 09/05/23
06:59 06:59 06:59
Intake Total 920 / 920 593 / 593
Output Total 290 / 290 1505 / 1505
Balance 630 / 630 -912 / -912
SaO2 95
Nasal Cannula flow liters per 2
minute
Physical Exam
General: Comfortable
HEENT: Normocephalic and Anicteric
Cardiovascular: S1-S2, Regular Rhythm, Murmur (n) and Rub (n)
Respiratory: Wheeze (n), Crackles (n), Rhonchi (n), Non-Labored Respirations and Chest Tube (No airleak per my review)
GI: Soft, Non Distended and Non Tender
Neurology: Awake, Alert and No Motor Deficits
Skin: Cyanosis (n), Jaundice (n) and Rash (n)
Labs/Micro/Reports
Lab Data
09/04/23 02:34
09/04/23 02:34
[2023-09-04] MEDS: TYLENOL 650 MG PO ×2 (17:45→21:21)
--- NOTE | 2023-09-04 19:00 | PTCARENOTE ---
Pt vomited a small amount of emesis this am approx 45 minutes after taking the roxicodone. Pt tolerated oob for a short time this am and about 1 1/2 hour this afternoon. Pt encouraged to be oob and to deep breath. Suction resumed to neg 10 after am
CXR. IV amio infusing as ordered. Pt remains in SR.
[2023-09-04] MEDS: PACERONE 200 MG PO (19:51)
[2023-09-04] MEDS: LOPRESSOR PO (22:06)
[2023-09-04] MEDS: LOPRESSOR 12.5 MG PO (22:47)
[2023-09-04] MEDS: AMBIEN 5 MG PO (22:51)
[2023-09-05] MEDS: TYLENOL 650 MG PO ×2 (02:49→06:42)
[2023-09-05] MEDS: ROXICODONE 5 MG PO ×3 (02:49→11:35)
[2023-09-05 05:05] VITALS: BP 116/73
[2023-09-05] MEDS: SYNTHROID 150 MCG PO (05:09)
--- NOTE | 2023-09-05 05:35 | PTCARENOTE ---
lyndsey gtt down @ 0315. Pt with continuous pain at her chest tube site overnight- PRN pain meds provided around the clock- documented per JUL. OOB to the [facility] overnight.
[2023-09-05 05:46] LABS: Blood Urea Nitrogen 27 mg/dl (7-17); Calcium 8.3 mg/dl (8.4-10.2); Carbon Dioxide 26 mmol/L (22-30); Chloride 103 mmol/L (98-107); Estimated Creatinine Clearance 45 ml/min; Glucose 97 mg/dl (70-99); Potassium 4.1 mmol/L (3.5-5.1); Sodium 131 mmol/L (135-145)
--- NOTE | 2023-09-05 06:59 | W.PN.CT ---
Today's Communication / Plan
-
-pod #3
-on Amio drip overnight, remains in sinus rhythm low 50s - continue Lopressor
-increased PTX on 09/03 while on water seal trial - put back on -10 sxn
-R CT output 55/95, on -10 sxn, no air leak with talking, breathing or cough
-follow daily CXR- ptx appears improved
-continue sq Heparin for DVT prophylaxis
Assessment / Plan
-
- Atypical cells highly suspicious for malignancy of the right upper lobe lesion- s/p Robotic assisted thoracic surgery (RATS) right upper lobectomy; Radical lymph node dissection by Dr. Rainey on 09/02/23, pod #3
- Right upper lobe mass with ground glass opacity, atypical cells highly suspicious for malignancy
- Meningioma
- Multinodular goiter- status post subtotal thyroidectomy
- GERD
- Osteoporosis
- NSTEMI, CAD, hx coronary artery spasm
- Hyperlipidemia
- Hypertension
- Class 1 obesity (BMI 33)
- Chronic thrombocytosis
- History of COVID infection
- Chronic Intercostal Pain/ Cervical disc dz
- Hx diverticulitis, constipation
- Cholecystectomy 1996
- Anxiety
- Acute postop a-fib 110s on 09/03 (new dx) - tx with iv Lopressor x2, Amio bolus and drip
- ANASTASIA- will hold Toradol
- Acute postop hyponatremia
Discussed patient care with: Nursing and Care Team
Subjective
Procedure
s/p Robotic assisted thoracic surgery (RATS) right upper lobectomy; Radical lymph node dissection by Dr. Rainey on 09/02/23
-
Date of Service: September 05, 2023
Objective Data
-
Lab Results
09/04/23 02:34
PT 13.4 Sec (11.4-14.6) 08/27/23 08:58
INR 1.02 08/27/23 08:58
APTT 26.3 Sec (23.4-35.0) 08/27/23 08:58
Vital Signs
Vital Signs
Temp Pulse Resp BP Pulse Ox
98.4 F 60 18 112/81 94
09/04/23 23:16 09/04/23 22:00 09/04/23 23:16 09/04/23 21:21 09/04/23 23:16
CT Intake/Output/Weight
09/04/23 09/04/23 09/05/23
06:59 18:59 06:59
Intake Total 593 / 593
Output Total 705 / 1505 40 / 40
Balance -112 / -912 -40 / -40
SaO2: 94
Physical Exam
-
General: Awake and AOx3
Cardiovascular: Regular rate & rhythm and No Murmurs
Respiratory: Rhonchi (on R, cta on L)
Incision: Clean, Dry and Dressing Intact
Data Reviewed
-
Lab Results: Results Reviewed
Medications: Active Meds Reviewed
Chest X-Ray: Report Reviewed and Image Reviewed
ECG: Report Reviewed and Image Reviewed
[2023-09-05 08:00] VITALS: BP 118/65
[2023-09-05 08:42] VITALS: BP 118/65
[2023-09-05] MEDS: LIDOCAINE 4% PATCH 1 PATCH TOPICAL (09:36)
[2023-09-05] MEDS: LOPRESSOR 12.5 MG PO (09:37)
[2023-09-05] MEDS: FLEXERIL 5 MG PO ×2 (09:38→15:48)
[2023-09-05] MEDS: VITAMIN C 500 MG PO (09:39)
[2023-09-05] MEDS: NEURONTIN 300 MG PO ×2 (09:39→15:47)
[2023-09-05] MEDS: PACERONE 200 MG PO (09:39)
[2023-09-05] MEDS: THERAGRAN 1 TABLET PO (09:40)
[2023-09-05] MEDS: LIPITOR 40 MG PO (09:40)
[2023-09-05] MEDS: SENOKOT-S 1 TABLET PO (09:40)
[2023-09-05] MEDS: IMDUR (EXTENDED RELEASE) 60 MG PO (09:40)
[2023-09-05] MEDS: LOW STRENGTH ASPIRIN 81 MG PO (09:40)
[2023-09-05] MEDS: PROTONIX 40 MG PO (09:41)
[2023-09-05] MEDS: BUSPAR 10 MG PO (09:41)
[2023-09-05] MEDS: CARAFATE 1 GRAM PO ×3 (09:41→15:48)
[2023-09-05] MEDS: HEPARIN 5000 UNITS SC ×2 (09:41→15:47)
[2023-09-05 11:24] VITALS: BP 106/61
[2023-09-05] MEDS: MILK OF MAGNESIA 30 ML PO (11:36)
--- NOTE | 2023-09-05 11:42 | PTCARENOTE ---
Addendum entered by Anitra Mancilla RN 09/05/23 11:57:
[facility] notified of urine frequency, ordered U/A to culture. will obtain when patient voids again.
Original Note:
received patient from night RN, patient is in bed sleeping but easily aroused, patient c/o pain at right lateral CT site, will change dsg. today, has drainage on dsg, no crepitus, but tender to touch. currently CT is to water seal, done by MARTIN,
portable chest xray completed this am. Roxicodone po was given for pain at CT site. also patient c/o constipation, MOM given as ordered. patient is also c/o having to void numerous times thru the night. patient has frequency but no burning. monitor
remains in NSR with first degree, VSS. strongly encourage patient to use I/S and move about.
--- NOTE | 2023-09-05 12:13 | PTCARENOTE ---
CT clamped by CVPA.
[2023-09-05 13:14] LABS: Urine Albumin Negative (Neg - Trace); Urine Bilirubin Negative (Negative); Urine Character Clear (Clear); Urine Color Yellow; Urine Glucose Negative (Negative); Urine Ketone Negative (Negative); Urine Leukocyte Trace (Negative); Urine Nitrite Negative (Negative); Urine Occult Blood Negative (Negative); Urine Specific Gravity 1.005 (<1.030); Urine Urobilinogen Negative (Neg - 1+)
[2023-09-05 13:29] LABS: Urine Bacteria Few (Negative); Urine Red Blood Cell 0-2 /HPF (0-2)
--- NOTE | 2023-09-05 15:29 | W.DCSUMMARY ---
Discharge Summary
Discharge Data
Date of Admission: 09/02/23
Date of Discharge: 09/05/23
-
Pending Results: Yes
Additional Pending Results:
surgical pathology
Hospital Course
Primary care physician: Igor Sam
Outpatient Vibration Analyst: Miles Alvarado
Inpatient consultants: Pulmonary
Procedures:
1. robotics assisted right upper lobectomy, radical lymph node dissection
Primary Diagnosis:
1. Atypical cells highly suspicious for malignancy of the right upper lobe lesion
Secondary Diagnoses:
1. Meningioma
3. Multinodular goiter status post subtotal thyroidectomy
4. GERD
5. Osteoporosis
6. NSTEMI, CAD
7. Hyperlipidemia
8. Hypertension
9. Morbidly obesity (BMI 33.7)
10. History of COVID infection
11. Chronic Intercostal Pain
HPI: 73-year-old female was electively admitted on 09/02/2023 for right upper lobectomy and radical lymph node dissection
Hospital course: Patient underwent robotics assisted right upper lobectomy, radical lymph node dissection, cryoablation of intercostal spaces 4, 5, 6, 7, intercostal nerve block with bupivacaine mixture, intercostal spaces 4, 5, 6, 7, 8 by
Adan Rainey. Patient was extubated in the operating room. Patient was transitioned to water seal in the PACU and follow-up chest x-ray reported right upper lobe pneumothorax. Chest tube was placed back to -20 cm of water seal. Patient had
intermittent air leak on postoperative day #1 requiring 20 cm of suction. Postoperative day #2, and increased pneumothorax was noted on water seal and patient was placed back to -10 cm of suction. Multimodal pain modality was continued for
moderate to severe incisional pain. On postoperative day #3, the right pneumothorax was small and patient was placed to water seal. Follow-up chest x-ray was unchanged. Chest tube was clamped and follow-up chest x-ray reported no increase in the
small right apical pneumo. Final chest x-ray at 1700 reported unchanged tiny right apical pneumothorax. Chest tube removed without difficulty and secured with purse string suture. Midline removed. Patient stable for DC as d/w Dr. Rainey. patient will
need follow up CXR in 1 week.
Home medication changes:
Amiodarone and Metoprolol for atrial fibrillation prevention
Multi-modal pain regime: Flexeril, gabapentin, oxycodone
Discharge Plan
-
Patient Disposition: Home (Routine Discharge)
Discharge Diagnosis/Procedures: right upper lobe lobectomy
Condition: Good
Diet: Low Cholesterol and Low Sodium
Activity: No strenuous activity
Driving Restrictions: Not until seen by your Dr
Bathing Restrictions: OK to Shower
Others Tests: CXR in 1 week
Specialty Instructions: Weigh Daily- Call MD for wt gain/loss 3 lbs overnight/5 lbs in 1 week
Referrals:
CT Transitional Care Nurse [Outside] - in one to two days
(
The Cardiothoracic Transitional Care Nurse will call you to set up a visit in 1-2 days.)
Arnaldo Boyer MD [Family Provider] - in four to six weeks (Please make an appointment in four to six weeks.)
Miles Galeas MD [Active] - (6-8 weeks)
Adan Rainey MD [Active] - 09/23/23 2:15 pm
Prescriptions:
New
amiodarone [Pacerone] 200 mg Tablet
200 mg PO DAILY Qty: 30 1RF
cyclobenzaprine 10 mg Tablet
5 mg PO TID Qty: 30 0RF
gabapentin 300 mg Capsule
300 mg PO TID Qty: 30 0RF
oxycodone 5 mg Tablet
5 mg PO Q4HPRN PRN (Reason: severe pain) Qty: 20 0RF
metoprolol succinate [Toprol XL] 25 mg tablet extended release 24 hr
25 mg PO DAILY Qty: 30 1RF
pantoprazole 40 mg Tablet,Delayed Release (Dr/Ec)
40 mg PO DAILY Qty: 30 1RF
Continued
lorazepam 1 MG tablet
1 mg PO PRN PRN (Reason: anxiety or sleep)
Patient Comments:
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
melatonin 3 mg Tablet
3 mg PO HS PRN (Reason: insomnia)
acetaminophen 500 mg Tablet
1,000 mg PO Q6H PRN (Reason: pain)
nitroglycerin 0.4 mg Tablet, Sublingual
0.4 mg SUBLINGUAL DIRECTED PRN (Reason: chest pain)
aspirin 81 MG tablet,chewable
81 mg PO DAILY Qty: 0 0RF
buspirone 10 mg Tablet
10 mg PO BID Qty: 0 0RF
coenzyme Q10 [Co Q-10] 30 MG capsule
30 mg PO DAILY Qty: 0 0RF
atorvastatin [Lipitor] 40 mg Tablet
40 mg PO DAILY Qty: 0 0RF
isosorbide mononitrate 60 MG tablet extended release 24 hr
60 mg PO DAILY Qty: 0 0RF
levothyroxine 125 MCG tablet
150 mcg PO DAILY Qty: 0 0RF
zolpidem 10 MG tablet
10 mg PO HS Qty: 0 0RF
Patient Comments:
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
sucralfate 1 GRAM tablet
1 g PO QID Qty: 0 0RF
multivitamin Tablet
1 tab PO DAILY Qty: 0 0RF
ascorbic acid (vitamin C) [Vitamin C] 500 MG tablet
500 mg PO DAILY Qty: 0 0RF
Discontinued
pantoprazole 40 MG tablet,delayed release (DR/EC)
40 mg PO DAILY Qty: 30 11RF
Discharge Orders:
Discharge Patient (As Directed); Ordered 09/05/23
Ordered By: Tammy Cast
Care Plan Goals
Care Plan Goals:
Problem: Readiness for enhanced knowledge related to diagnosis and treatment plan
Goal: Understand your diagnosis and treatment plan needs, including medications if applicable.
Instructions: Know your diagnosis, underlying causes and treatment plan options, including medications if applicable. Consult with your health care team to learn about your diagnosis and treatment plan, including medications if applicable.
Discharge Date and Time
Print Language: FAROESE
[2023-09-05 15:39] VITALS: BMI 33.6
[2023-09-05 15:46] VITALS: BP 108/69
[2023-09-05 15:53] VITALS: BP 108/69
--- NOTE | 2023-09-05 17:44 | PTCARENOTE ---
portable chest xray obtained at 1700 as ordered.
--- NOTE | 2023-09-05 18:16 | PTCARENOTE ---
chest tube pulled by Tammy SALAZAR. vascual[facility] access team called to D/C midline. patient will be discharged to home tonight.
--- NOTE | 2023-09-05 18:39 | PTCARENOTE ---
D/C instructions given to patient and , both verbalizes understanding. INT x 2 D/C'd, telemetry D/Cd'. personal belongings packed and sent home with patient. D/C to home via wc accompanied by staff.
== END 2023-09-05 20:38 | disposition home or self-care (01) | DRG 164 ==
LOC: IVU 09:21
PROVIDERS: Clinical Nurse Specialist Acute Care; Nurse Practitioner; Physician Assistant Medical; ADMITTING PHYSICIAN Thoracic Surgery (Cardiothoracic Vascular Surgery); CONSULT PHYSICIAN Internal Medicine Critical Care Medicine; FAMILY PHYSICIAN Internal Medicine
PROC: 07T74ZZ Resection of Thorax Lymphatic, Percutaneous Endoscopic Approach (ICD-10-PCS; 2023-09-02)
PROC: 0BTC4ZZ Resection of Right Upper Lung Lobe, Percutaneous Endoscopic Approach (ICD-10-PCS; 2023-09-02)
PROC: 8E0W4CZ Robotic Assisted Procedure of Trunk Region, Percutaneous Endoscopic Approach (ICD-10-PCS; 2023-09-02)
PROC: 01584ZZ Destruction of Thoracic Nerve, Percutaneous Endoscopic Approach (ICD-10-PCS; 2023-09-02)
DX: C34.11 Malignant neoplasm of upper lobe, right bronchus or lung (principal); J95.811 Postprocedural pneumothorax; J95.812 Postprocedural air leak; J98.11 Atelectasis; D32.9 Benign neoplasm of meninges, unspecified; K21.9 Gastro-esophageal reflux disease without esophagitis; M81.0 Age-related osteoporosis without current pathological fracture; I25.10 Atherosclerotic heart disease of native coronary artery without angina pectoris; E78.5 Hyperlipidemia, unspecified; I10 Essential (primary) hypertension; E66.01 Morbid (severe) obesity due to excess calories; Z68.33 Body mass index [BMI] 33.0-33.9, adult; E04.2 Nontoxic multinodular goiter; Z86.16 Personal history of COVID-19; Z87.891 Personal history of nicotine dependence
CPT/HCPCS: 88305; 88309; 32505; 36415; 64999; 71045; 80048; 80053; 81003; 81015; 82248; 83036; 83735; 85025; 85027; 85610; 85730; 86850; 86900; 86901; 87070; 88313; 93005; 93880; C2618

== ENCOUNTER → 2023-09-11 14:27 | Outpatient (REF) | payer MEDICARE, SELFPAY | LOC: RAD 14:27 | PROVIDERS: ATTENDING PHYSICIAN Thoracic Surgery (Cardiothoracic Vascular Surgery); FAMILY PHYSICIAN Internal Medicine | DX: Z90.2 Acquired absence of lung [part of] (principal) | CPT/HCPCS: 71046 ==

== ENCOUNTER 2023-09-14 01:13 | Emergency (ER) | payer MEDICARE, SELFPAY ==
[2023-09-14 01:15] VITALS: BP 153/85; BMI 34.3
[2023-09-14 01:19] VITALS: BP 153/85
[2023-09-14 01:28] LABS: % Basophils 0.8 % (0-2); % Eosinophils 2.9 % (0-6); % Immature Granulocytes 1.2 % (0-0.5); % Lymphocytes 32.3 % (20.5-51.1); % Monocytes 7.3 % (1.7-9.3); % Neutrophils 55.5 % (42.2-75.2); Absolute Basophils 0.1 10^3/uL (0-0.2); Absolute Eosinophils 0.3 10^3/uL (0-0.7); Absolute Immature Granulocytes 0.1 10^3/uL (0-0.05); Absolute Lymphocytes 3.7 10^3/uL (1.2-3.4); Absolute Monocytes 0.8 10^3/uL (0.1-0.6); Absolute Neutrophils 6.4 10^3/uL (1.4-6.5); Hematocrit 41.4 % (37.0-47.0); Mean Corp Hgb Conc. 33.8 g/dL (33.0-37.0); Mean Corpuscular Hgb 30.1 pg (27.0-31.0); Mean Platelet Volume 8.6 fL (7.4-10.4); Nucleated Red Blood Cells % 0 %; Platelet Count 531 10^3/uL (130-400); Red Blood Cell Count 4.65 10^6/uL (4.20-5.40); Red Cell Dist. Width 12.9 % (11.5-14.5); White Blood Cell Count 11.5 10^3/uL (4.8-10.8)
--- NOTE | 2023-09-14 01:41 | ED.GENMED ---
History of Present Illness
<ALMAZ Frank - Last Filed: 09/14/23 02:11>
General
Chief Complaint: Chest Problem
Source: patient
Exam Limitations: none
Time Seen by Provider: 09/14/23 01:42
Nursing documentation reviewed up to this point in time: agreed with
Travel History
Have you had any contact with someone who has COVID-19?: No
Do you have any symptoms of coronavirus? Fever > 100 degrees, chills, cough, shortness of breath, sore throat, loss of taste or smell, muscle aches, or headache?: No
History of Present Illness
History of Present Illness:
This is a 73 year old female with recent robotic upper lobectomy and radical lymph node dissection (09/02/23) presents to the ED via ambulance with complaint of worsening incisional site pain x8 hours. She was having dinner when pain along her
incisional sites began to worsen. Her pain continued to worsen each hour. She took Oxycodone and Lorazepam around 9pm that has not provided any relief. She states she is unable to take a deep breath due to the pain. She denies chest pressure,
headache, coughing, or palpitations. She had a repeat CXR that was consistent with small right apical pneumothorax that mildly increase in size compared to her CXR done prior to discharge after her procedure. She has not followed up with her surgeon
yet. She states she took her last dose of Oxycodone today.
Past History
<ALMAZ Frank - Last Filed: 09/14/23 02:11>
Past History
ED Past Medical History: CAD (Vasospasm), GERD, HTN, Hypercholesterolemia, OR (Non-STEMI November 2014, cardiac cath showing nonobstructive coronary artery disease.), Hypothyroidism and Other (Osteoporosis, meningioma, Paresthesia,); Negative Asthma or
NIDDM
ED Past Surgical History: Cardiac (Cardiac catheterization November 2014 showing nonobstructive coronary artery disease.), Cholecystectomy and Other (Thyroidectomy, Minor breast surg)
Social History
Tobacco: Former smoker
Alcohol: Occasional
Drug: None
Personal:
Living: with family
Employment: Not employed
Family History
Family History: CAD; Negative Early CAD
Review of Systems
<ST MonikaNM - Last Filed: 09/14/23 02:11>
Review of Systems
Allergies reviewed?: Yes
All Other Systems: Not applicable
Constitutional: Reports no symptoms
EENT: Reports no symptoms
Respiratory: Reports trouble breathing (Difficulty taking a deep breath)
Cardiac: Reports no symptoms
ABD/GI: Reports no symptoms
: Reports no symptoms
Musculoskeletal: Reports no symptoms
Skin: Reports other (Pain along incisional sites )
Neurological: Reports no symptoms
Endocrine: Reports no symptoms
Hematologic/Lymphatic: Reports no symptoms
Psychiatric: Reports no symptoms
Phy Exam
<Sade Mancia [facility] - Last Filed: 09/14/23 02:11>
General Physical Exam
General Presentation: well appearing and no apparent distress
General Skin: warm and dry
General Habitus: normal
General Mental: alert
General Hydration: appears well hydrated
ENT Exam
ENT Exam: EOMI, pharynx normal, neck supple and normocephalic
Eye Exam
Eye Exam: PERRL, cornea clear and conjunctiva normal
Cardiovascular Exam
Cardiovascular Exam: regular rate/rhythm, no edema, no murmur and normal peripheral pulses
Pulmonary Exam
Pulmonary Exam: lungs clear, no respiratory distress, no rales, no crackles, no rhonchi, no stridor, no wheezing and no cough
Gastrointestinal Exam
Gastrointestinal Exam: normal bowel sounds, non tender, soft, no organomegaly, no pulsatile mass and non distended
Neurological Exam
Neurological Exam: alert, oriented x3, no motor deficits and speech normal
Musculoskeletal Exam
Musculoskeletal Exam: full ROM and no edema
Skin Exam
Skin Exam: normal color and other (Incision sites are clear, dry, and intact. No erythema or discharge. )
Psychiatric Exam
Psychiatric Exam: normal mood/affect
Course
<ALMAZ Frank - Last Filed: 09/14/23 02:11>
Orders/Labs/Results
Orders:
Orders
09/14/23 01:14
Electrocardiogram (*1) Urgent
Reason for Study: Chest Pain
EKG- Treatment ONCE
09/14/23 01:23
Complete Blood Count/With Diff Urgent
Comprehensive Metabolic Panel Urgent
09/14/23 02:01
CR Chest - 2 Views Urgent
Comment:
Reason For Exam: pleuritc right chest pain
09/14/23 02:43
Ketorolac [Toradol] 15 mg .ROUTE .STK-MED ONE
Ketorolac [Toradol] 15 mg IV NOW STA
09/14/23 03:32
Gabapentin [Neurontin] 300 mg PO NOW STA
HYDROmorphone [Dilaudid] 0.5 mg IV NOW STA
Abnormal Lab Results
09/14/23
01:23
WBC 11.5 H 10^3/uL
(4.8-10.8)
Plt Count 531 H 10^3/uL
(130-400)
Abs Immat Gran (auto) 0.1 H 10^3/uL
(0-0.05)
Absolute Lymphs (auto) 3.7 H 10^3/uL
(1.2-3.4)
Absolute Monos (auto) 0.8 H 10^3/uL
(0.1-0.6)
Immature Gran % 1.2 H %
(0-0.5)
Creatinine 1.1 H mg/dL
(0.6-1.0)
Glucose 111 H mg/dl
(70-99)
Total Protein 6.1 L g/dl
(6.3-8.2)
09/14/23 01:23
09/14/23 01:23
Vital Signs
Initial and Last Documented VS:
Initial Vital Signs
Temp Pulse Resp BP Pulse Ox
99.7 F 64 18 153/85 95
09/14/23 01:15 09/14/23 01:15 09/14/23 01:15 09/14/23 01:15 09/14/23 01:15
Last Documented Vital Signs
Temp Pulse Resp BP Pulse Ox
99.7 F 52 16 142/68 95
09/14/23 01:15 09/14/23 03:30 09/14/23 03:30 09/14/23 02:00 09/14/23 03:30
<Anitra Zheng, DO - Last Filed: 09/14/23 05:46>
Orders/Labs/Results
Orders:
Orders
09/14/23 01:14
Electrocardiogram (*1) Urgent
Reason for Study: Chest Pain
EKG- Treatment ONCE
09/14/23 01:23
Complete Blood Count/With Diff Urgent
Comprehensive Metabolic Panel Urgent
09/14/23 02:01
CR Chest - 2 Views Urgent
Comment:
Reason For Exam: pleuritc right chest pain
09/14/23 02:43
Ketorolac [Toradol] 15 mg .ROUTE .STK-MED ONE
Ketorolac [Toradol] 15 mg IV NOW STA
09/14/23 03:32
Gabapentin [Neurontin] 300 mg PO NOW STA
HYDROmorphone [Dilaudid] 0.5 mg IV NOW STA
Abnormal Lab Results
09/14/23
01:23
WBC 11.5 H 10^3/uL
(4.8-10.8)
Plt Count 531 H 10^3/uL
(130-400)
Abs Immat Gran (auto) 0.1 H 10^3/uL
(0-0.05)
Absolute Lymphs (auto) 3.7 H 10^3/uL
(1.2-3.4)
Absolute Monos (auto) 0.8 H 10^3/uL
(0.1-0.6)
Immature Gran % 1.2 H %
(0-0.5)
Creatinine 1.1 H mg/dL
(0.6-1.0)
Glucose 111 H mg/dl
(70-99)
Total Protein 6.1 L g/dl
(6.3-8.2)
09/14/23 01:23
09/14/23 01:23
Vital Signs
Initial and Last Documented VS:
Initial Vital Signs
Temp Pulse Resp BP Pulse Ox
99.7 F 64 18 153/85 95
09/14/23 01:15 09/14/23 01:15 09/14/23 01:15 09/14/23 01:15 09/14/23 01:15
Last Documented Vital Signs
Temp Pulse Resp BP Pulse Ox
99.7 F 52 16 142/68 95
09/14/23 01:15 09/14/23 03:30 09/14/23 03:30 09/14/23 02:00 09/14/23 03:30
<ALMAZ Frank - Last Filed: 09/14/23 02:11>
MDM/Problems Addressed
Differential Diagnosis Includes:
Pain secondary to procedure, PE, PNA, pneumothorax
PE was considered to due difficulty taking a deep breath, however she is not tachycardiac. She is able to take deep breaths on exam. Lungs are CTA. PNA was considered, however she denies any fevers. Pneumothorax was considered due to her CXR finding
on 09/11/23, however low suspicion her pain is due to her pneumothorax. I suspect her pain is secondary to her recent procedure as she is TTP along incisional sites. Incisional sites are clear, dry, and intact making is less likely that they are
infected. Will plan to treat her pain while in the ED.
<Anitra Zheng DO - Last Filed: 09/14/23 05:46>
*Radiology
Radiology exam reviewed: preliminary read by ED provider (Chest x-ray shows small persistent apical pneumothorax, unchanged from previous September 10. There is no infiltrate nor effusion.)
*Pulse Oximetry
Patient hypoxic: no
*EKG
Interpreted by ED Provider?: Yes
Interpretation: normal
Comparison EKG: no changes (Unchanged from previous September 02, 2023)
Rate: bradycardiac
Rhythm: sinus
[place]: normal axis
Interval: normal interval
QRS Pattern: normal QRS
Ischemia: no ischemia
*Course Developer Interpretation
Rate: normal and bradycardiac
Interpretation: normal
Rhythm: sinus
*Critical Care Note
Total Time (30-74mins, 75-104mins- exclusive of procedures): Not Applicable
ED Attending Note
<ALMAZ Frank - Last Filed: 09/14/23 02:11>
-
Portions of this chart may have been created with voice recognition software.� Occasional wrong word or��sound alike� substitutions may have occurred due to the inherent limitations of voice recognition software.
<Anitra Zheng DO - Last Filed: 09/14/23 05:46>
ED Attending Note
Patient seen and examined by attending physician: Yes
I performed the substantive portion of visit, reviewed & personally made and approve the management plan that is documented in note by myself or TREMAINE.: Yes
I performed a history and physical exam of patient and discussed management with resident, I reviewed resident's note and agree with documented findings and plan of care.: Yes
ED Attending Note:
This is a 73-year-old woman who recently underwent right upper lobe lobectomy September 01 along with radical lymph node dissection for resection of a right upper lobe lesion containing atypical cells highly suspicious for malignancy.
She was discharged to home on September 04 but was noted to have significant postoperative pain, eventually managed with oxycodone, gabapentin, cyclobenzaprine.
She was prescribed 20 oxycodone 5 mg tablets which she has been taking sporadically for postoperative pain, took her last dose at 9 PM last night.
She presents with persistent right lateral chest wall pain, similar area where she has been experiencing postop pain since her surgery. Pain comes in waves, is worse with deep breath, seems to be worse with lying supine. She has not had a cough
nor fever, no shortness of breath but admits that pain is worse with deep breath.
Appetite has been good, no nausea nor vomiting. She does admit to mild to moderate constipation having passed a bowel movement 2 days ago. She denies abdominal pain. She has been taking Dulcolax as well as milk of magnesia.
Postop imaging revealed persistent small right apical pneumothorax noted on most recent imaging September 10.
GENERAL: 73-year-old woman appears her stated age, bright and alert, pleasant, appears in no acute distress. Intermittently briefly wincing in pain but able to speak in full sentences. Respirations are easy nonlabored.
EYE: anicteric
NECK: Supple, nontender, no meningismus, no significant adenopathy. No JVD. No crepitus.
ENT: oral mucosa is moist. No rhinorrhea.
CARDIAC: Regular rate and rhythm. no murmur.
LUNGS: Clear breath sounds bilaterally, no acute respiratory distress, no wheezes/rales/rhonchi. Mild tenderness to palpation right lateral chest wall. No crepitus.
ABDOMEN: Soft, nondistended, without focal tenderness, no r/g, no cvat. normoactive BS.
NEUROLOGICAL: Alert and oriented x3, no focal neuro deficits.
SKIN: Warm and dry, normal color, skin intact. No rash.
MUSCULOSKELETAL: No C/C/E. peripheral pulses are full and equal b/l. No palpable tenderness.
PSYCH: Normal and appropriate interaction.
Concern for recurrent postoperative pain, other consideration is progression of postop pneumothorax, pneumonia, pleural effusion. She has had no shortness of breath, no palpitations, no leg pain or swelling, PE is much less likely.
She does have history of CAD, previous OR, pain however has been persistent since postop. And more consistent with postoperative pain. Will nonetheless check EKG and labs and will check chest x-ray.
Will trial a small IV dose of Toradol for pain.
09/14/2023 0544 AM
Patient reports mild to moderate provide after IV Toradol but is much more comfortable after an IV dose of Dilaudid. Resting comfortably, able to move about with ease.
Chest x-ray shows continued small apical pneumothorax, similar and unchanged from September 10. There is no effusion nor infiltrate.
Labs are unremarkable, mildly elevated white blood cell count that is improving from previous. Normal H&H. Mildly elevated platelet count, similar to previous.
Chemistries are unremarkable.
EKG is similar and unchanged from previous.
History and exam consistent with postoperative pain and patient admits to increased activity yesterday. She also admits the pain is worse at nighttime with lying down.
Recommend we resume gabapentin at least over the next week or 2 and I written a prescription for a few more oxycodone which she can take for as needed moderate to severe pain.
Recommend prompt follow-up with her cardiothoracic surgeon for recheck.
Discussed importance of continuing bowel regimen while on narcotics including fiber supplements, stool softeners on a daily basis.
Discharge Plan
Departure
Patient Disposition: Home (Routine Discharge)
Date of Disposition: 09/14/23
Time of Disposition: 05:38
Patient with high blood pressure during this ER visit?: No
Condition: Good
Discharge Problem:
Post-operative pain
Instructions: Managing pain after surgery
Prescriptions:
New
gabapentin 300 mg capsule
300 mg PO TID Qty: 45 0RF
oxycodone 5 mg tablet
5 mg PO TID PRN (Reason: Pain) Qty: 14 0RF
No Action
lorazepam 1 MG tablet
1 mg PO PRN PRN (Reason: anxiety or sleep)
Patient Comments:
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
melatonin 3 mg Tablet
3 mg PO HS PRN (Reason: insomnia)
acetaminophen 500 mg Tablet
1,000 mg PO Q6H PRN (Reason: pain)
nitroglycerin 0.4 mg Tablet, Sublingual
0.4 mg SUBLINGUAL DIRECTED PRN (Reason: chest pain)
aspirin 81 MG tablet,chewable
81 mg PO DAILY Qty: 0 0RF
buspirone 10 mg Tablet
10 mg PO BID Qty: 0 0RF
coenzyme Q10 [Co Q-10] 30 MG capsule
30 mg PO DAILY Qty: 0 0RF
atorvastatin [Lipitor] 40 mg Tablet
40 mg PO DAILY Qty: 0 0RF
isosorbide mononitrate 60 MG tablet extended release 24 hr
60 mg PO DAILY Qty: 0 0RF
levothyroxine 125 MCG tablet
150 mcg PO DAILY Qty: 0 0RF
zolpidem 10 MG tablet
10 mg PO HS Qty: 0 0RF
Patient Comments:
patient seed cone picker on 12/18/20 #90
amiodarone [Pacerone] 200 mg Tablet
200 mg PO DAILY Qty: 30 1RF
sucralfate 1 GRAM tablet
1 g PO QID Qty: 0 0RF
cyclobenzaprine 10 mg Tablet
5 mg PO TID Qty: 30 0RF
gabapentin 300 mg Capsule
300 mg PO TID Qty: 30 0RF
oxycodone 5 mg Tablet
5 mg PO Q4HPRN PRN (Reason: severe pain) Qty: 20 0RF
multivitamin Tablet
1 tab PO DAILY Qty: 0 0RF
ascorbic acid (vitamin C) [Vitamin C] 500 MG tablet
500 mg PO DAILY Qty: 0 0RF
metoprolol succinate [Toprol XL] 25 mg tablet extended release 24 hr
25 mg PO DAILY Qty: 30 1RF
pantoprazole 40 mg Tablet,Delayed Release (Dr/Ec)
40 mg PO DAILY Qty: 30 1RF
Referrals:
Arnaldo Boyer MD [Family Provider] - Call in 1-3 days for appt
Adan Rainey MD [Active] - Call in 1-3 days for appt
Interventions
Interventions:
*Risk Screen - Suicide Last Done: 09/14/23 01:15
*General Assessment Last Done: 09/14/23 01:15
*Neglect/Abuse Screening Last Done: 09/14/23 01:15
*ED COVID-19 Vaccine History Last Done: 09/14/23 01:15
ED- Cardiac Assessment Last Done: 09/14/23 01:21
ED- Pulmonary Assessment Last Done: 09/14/23 01:21
Discharge Date and Time
Print Language: KOSOVAN
[2023-09-14 01:42] LABS: ALT (SGPT) 14 U/L (0-35); AST (SGOT) 21 U/L (14-36); Albumin 3.7 g/dl (3.5-5.0); Alkaline Phosphatase 60 U/L (38-126); Blood Urea Nitrogen 15 mg/dl (7-17); Calcium 9.1 mg/dl (8.4-10.2); Carbon Dioxide 30 mmol/L (22-30); Chloride 103 mmol/L (98-107); Estimated Creatinine Clearance 46 ml/min; Glucose 111 mg/dl (70-99); Potassium 4.5 mmol/L (3.5-5.1); Sodium 139 mmol/L (135-145); Total Bilirubin 0.4 mg/dl (0.2-1.3); Total Protein 6.1 g/dl (6.3-8.2)
[2023-09-14 02:00] VITALS: BP 142/68
[2023-09-14] MEDS: TORADOL 15 MG IV (02:44)
[2023-09-14] MEDS: DILAUDID 0.5 MG IV (03:37)
[2023-09-14] MEDS: NEURONTIN 300 MG PO (03:37)
[2023-09-14 05:51] VITALS: BP 145/69
== END 2023-09-14 05:52 | disposition home or self-care (01) ==
LOC: EMR 01:13
PROVIDERS: Emergency Medicine; EMERGENCY PHYSICIAN Emergency Medicine; FAMILY PHYSICIAN Internal Medicine
DX: G89.18 Other acute postprocedural pain (principal); R07.89 Other chest pain; Z87.891 Personal history of nicotine dependence
CPT/HCPCS: 99285; 96374; 96375; 71046; 80053; 85025; 93005

== ENCOUNTER → 2023-09-21 13:17 | Outpatient (REF) | payer MEDICARE, SELFPAY | LOC: RAD 13:17 | PROVIDERS: ATTENDING PHYSICIAN Thoracic Surgery (Cardiothoracic Vascular Surgery); FAMILY PHYSICIAN Internal Medicine | DX: J93.9 Pneumothorax, unspecified (principal) | CPT/HCPCS: 71046 ==

== ENCOUNTER → 2023-11-19 10:58 | Outpatient (REF) | payer MEDICARE, SELFPAY | LOC: RCS 10:58 | PROVIDERS: ATTENDING PHYSICIAN Nurse Practitioner; FAMILY PHYSICIAN Internal Medicine | DX: I25.10 Atherosclerotic heart disease of native coronary artery without angina pectoris (principal); I48.91 Unspecified atrial fibrillation; R06.02 Shortness of breath | CPT/HCPCS: 93306 ==

== ENCOUNTER → 2023-12-23 13:20 | Outpatient (REF) | payer MEDICARE, SELFPAY | LOC: RAD 13:20 | PROVIDERS: ATTENDING PHYSICIAN Internal Medicine | DX: G89.18 Other acute postprocedural pain (principal); Z85.118 Personal history of other malignant neoplasm of bronchus and lung | CPT/HCPCS: 71046 ==

== ENCOUNTER → 2023-12-25 06:44 | Outpatient (REF) | payer MEDICARE, SELFPAY ==
[2023-12-25] VITALS (9 sets, daily range): BP systolic 56–130; BP diastolic 60–86
[2023-12-25] MEDS: ANCEF 10 IV (08:05)
== END ==
LOC: RADI 06:44
PROVIDERS: ATTENDING PHYSICIAN Internal Medicine Hematology & Oncology; FAMILY PHYSICIAN Internal Medicine
DX: C34.11 Malignant neoplasm of upper lobe, right bronchus or lung (principal)
CPT/HCPCS: 36561; 76937; 77001; 99152; 99153; C1788

== ENCOUNTER → 2023-12-28 08:22 | Outpatient (REF) | payer MEDICARE, SELFPAY ==
[2023-12-28 10:41] LABS: % Basophils 1.2 % (0-2); % Immature Granulocytes 0.4 % (0-0.5); % Lymphocytes 34.2 % (20.5-51.1); % Monocytes 8.7 % (1.7-9.3); % Neutrophils 53.5 % (42.2-75.2); Absolute Basophils 0.1 10^3/uL (0-0.2); Absolute Eosinophils 0.2 10^3/uL (0-0.7); Absolute Lymphocytes 3.5 10^3/uL (1.2-3.4); Absolute Monocytes 0.9 10^3/uL (0.1-0.6); Absolute Neutrophils 5.4 10^3/uL (1.4-6.5); Hematocrit 44.8 % (37.0-47.0); Hemoglobin 15.5 g/dL (12.0-16.0); Mean Corp Hgb Conc. 34.6 g/dL (33.0-37.0); Mean Corpuscular Hgb 29.9 pg (27.0-31.0); Mean Corpuscular Volume 86.5 fL (81.0-99.0); Mean Platelet Volume 9.3 fL (7.4-10.4); Nucleated Red Blood Cells % 0 %; Platelet Count 469 10^3/uL (130-400); Red Blood Cell Count 5.18 10^6/uL (4.20-5.40); Red Cell Dist. Width 13.2 % (11.5-14.5); White Blood Cell Count 10.1 10^3/uL (4.8-10.8)
[2023-12-28 13:37] LABS: ALT (SGPT) 13 U/L (0-35); AST (SGOT) 24 U/L (14-36); Albumin 4.7 g/dl (3.5-5.0); Alkaline Phosphatase 52 U/L (38-126); Blood Urea Nitrogen 25 mg/dl (7-17); Calcium 9.6 mg/dl (8.4-10.2); Carbon Dioxide 21 mmol/L (22-30); Chloride 104 mmol/L (98-107); Glucose 83 mg/dl (70-99); Potassium 4.7 mmol/L (3.5-5.1); Sodium 141 mmol/L (135-145); Total Bilirubin 0.8 mg/dl (0.2-1.3)
[2023-12-28 14:10] LABS: TSH 0.87 uIU/ml (0.47-4.68)
== END ==
LOC: HWLAB 08:22
PROVIDERS: ATTENDING PHYSICIAN Internal Medicine Hematology & Oncology; FAMILY PHYSICIAN Internal Medicine
DX: C34.12 Malignant neoplasm of upper lobe, left bronchus or lung (principal); I10 Essential (primary) hypertension
CPT/HCPCS: 36415; 80053; 84443; 85025

== ENCOUNTER → 2024-01-15 11:16 | Outpatient (REF) | payer MEDICARE, SELFPAY ==
[2024-01-15 13:20] LABS: % Basophils 1.1 % (0-2); % Eosinophils 2.8 % (0-6); % Immature Granulocytes 0.2 % (0-0.5); % Lymphocytes 47.9 % (20.5-51.1); % Monocytes 13.1 % (1.7-9.3); % Neutrophils 34.9 % (42.2-75.2); Absolute Basophils 0.1 10^3/uL (0-0.2); Absolute Eosinophils 0.1 10^3/uL (0-0.7); Absolute Lymphocytes 2.2 10^3/uL (1.2-3.4); Absolute Monocytes 0.6 10^3/uL (0.1-0.6); Absolute Neutrophils 1.6 10^3/uL (1.4-6.5); Hematocrit 41.8 % (37.0-47.0); Hemoglobin 13.9 g/dL (12.0-16.0); Mean Corp Hgb Conc. 33.3 g/dL (33.0-37.0); Mean Corpuscular Hgb 30.6 pg (27.0-31.0); Mean Corpuscular Volume 92.1 fL (81.0-99.0); Mean Platelet Volume 9.3 fL (7.4-10.4); Nucleated Red Blood Cells % 0 %; Platelet Count 448 10^3/uL (130-400); Red Blood Cell Count 4.54 10^6/uL (4.20-5.40); Red Cell Dist. Width 13.4 % (11.5-14.5); White Blood Cell Count 4.7 10^3/uL (4.8-10.8)
[2024-01-15 13:56] LABS: ALT (SGPT) 18 U/L (0-35); AST (SGOT) 21 U/L (14-36); Albumin 4.2 g/dl (3.5-5.0); Alkaline Phosphatase 52 U/L (38-126); Blood Urea Nitrogen 24 mg/dl (7-17); Calcium 9.2 mg/dl (8.4-10.2); Carbon Dioxide 28 mmol/L (22-30); Chloride 101 mmol/L (98-107); Glucose 98 mg/dl (70-99); Potassium 4.6 mmol/L (3.5-5.1); Sodium 141 mmol/L (135-145); Total Bilirubin 0.6 mg/dl (0.2-1.3); Total Protein 6.4 g/dl (6.3-8.2)
== END ==
LOC: REG 11:16
PROVIDERS: ATTENDING PHYSICIAN Internal Medicine Hematology & Oncology; FAMILY PHYSICIAN Internal Medicine
DX: C34.11 Malignant neoplasm of upper lobe, right bronchus or lung (principal); I10 Essential (primary) hypertension
CPT/HCPCS: 36415; 80053; 84443; 85025

== ENCOUNTER → 2024-02-05 10:36 | Outpatient (REF) | payer MEDICARE, SELFPAY ==
[2024-02-05 12:27] LABS: Hematocrit 37.3 % (37.0-47.0); Hemoglobin 12.8 g/dL (12.0-16.0); Mean Corp Hgb Conc. 34.3 g/dL (33.0-37.0); Mean Corpuscular Hgb 30.4 pg (27.0-31.0); Mean Corpuscular Volume 88.6 fL (81.0-99.0); Mean Platelet Volume 9.2 fL (7.4-10.4); Platelet Count 308 10^3/uL (130-400); Red Blood Cell Count 4.21 10^6/uL (4.20-5.40); White Blood Cell Count 4.8 10^3/uL (4.8-10.8)
[2024-02-05 12:42] LABS: ALT (SGPT) 24 U/L (0-35); AST (SGOT) 23 U/L (14-36); Albumin 3.9 g/dl (3.5-5.0); Alkaline Phosphatase 43 U/L (38-126); Blood Urea Nitrogen 13 mg/dl (7-17); Calcium 8.9 mg/dl (8.4-10.2); Carbon Dioxide 23 mmol/L (22-30); Chloride 108 mmol/L (98-107); Glucose 105 mg/dl (70-99); Potassium 4.3 mmol/L (3.5-5.1); Sodium 143 mmol/L (135-145); Total Bilirubin 0.3 mg/dl (0.2-1.3); Total Protein 6.1 g/dl (6.3-8.2); eGFR 58.39
[2024-02-05 13:19] LABS: TSH 0.94 uIU/ml (0.47-4.68)
[2024-02-05 13:25] LABS: % Basophils 0.6 % (0-2); % Eosinophils 3.1 % (0-6); % Immature Granulocytes 0.2 % (0-0.5); % Lymphocytes 50.6 % (20.5-51.1); % Monocytes 13.5 % (1.7-9.3); Absolute Eosinophils 0.2 10^3/uL (0-0.7); Absolute Lymphocytes 2.4 10^3/uL (1.2-3.4); Absolute Monocytes 0.7 10^3/uL (0.1-0.6); Absolute Neutrophils 1.5 10^3/uL (1.4-6.5); Nucleated Red Blood Cells % 0 %
== END ==
LOC: HWLAB 10:36
PROVIDERS: ATTENDING PHYSICIAN Internal Medicine Hematology & Oncology; FAMILY PHYSICIAN Internal Medicine
DX: C34.11 Malignant neoplasm of upper lobe, right bronchus or lung (principal); I10 Essential (primary) hypertension
CPT/HCPCS: 36415; 80053; 84443; 85025

== ENCOUNTER → 2024-02-18 15:11 | Outpatient (REF) | payer MEDICARE, SELFPAY ==
[2024-02-18 15:21] LABS: % Basophils 0.6 % (0-2); % Eosinophils 0.6 % (0-6); % Immature Granulocytes 0.4 % (0-0.5); % Lymphocytes 55.8 % (20.5-51.1); % Monocytes 13.9 % (1.7-9.3); % Neutrophils 28.7 % (42.2-75.2); Absolute Monocytes 0.8 10^3/uL (0.1-0.6); Absolute Neutrophils 1.6 10^3/uL (1.4-6.5); Hematocrit 35.6 % (37.0-47.0); Hemoglobin 12.3 g/dL (12.0-16.0); Mean Corp Hgb Conc. 34.6 g/dL (33.0-37.0); Mean Corpuscular Volume 89.7 fL (81.0-99.0); Mean Platelet Volume 9.3 fL (7.4-10.4); Platelet Count 181 10^3/uL (130-400); Red Blood Cell Count 3.97 10^6/uL (4.20-5.40); White Blood Cell Count 5.4 10^3/uL (4.8-10.8)
[2024-02-18 16:28] LABS: ALT (SGPT) 24 U/L (0-35); AST (SGOT) 22 U/L (14-36); Albumin 3.7 g/dl (3.5-5.0); Alkaline Phosphatase 45 U/L (38-126); Blood Urea Nitrogen 15 mg/dl (7-17); Calcium 8.3 mg/dl (8.4-10.2); Carbon Dioxide 22 mmol/L (22-30); Chloride 104 mmol/L (98-107); Glucose 87 mg/dl (70-99); Magnesium 1.9 mg/dl (1.6-2.3); Potassium 3.9 mmol/L (3.5-5.1); Sodium 141 mmol/L (135-145); Total Bilirubin 0.8 mg/dl (0.2-1.3); Total Protein 5.9 g/dl (6.3-8.2); eGFR 52.08
== END ==
LOC: OIDL 15:11
PROVIDERS: ATTENDING PHYSICIAN Nurse Practitioner Adult Health
DX: C34.11 Malignant neoplasm of upper lobe, right bronchus or lung (principal)
CPT/HCPCS: 80053; 83735; 85025

== ENCOUNTER → 2024-02-25 13:38 | Outpatient (REF) | payer MEDICARE, SELFPAY ==
[2024-02-25 15:34] LABS: % Basophils 0.4 % (0-2); % Eosinophils 2.2 % (0-6); % Immature Granulocytes 1.2 % (0-0.5); % Lymphocytes 40.6 % (20.5-51.1); % Monocytes 12.1 % (1.7-9.3); % Neutrophils 43.5 % (42.2-75.2); Absolute Eosinophils 0.1 10^3/uL (0-0.7); Absolute Immature Granulocytes 0.1 10^3/uL (0-0.05); Absolute Monocytes 0.6 10^3/uL (0.1-0.6); Absolute Neutrophils 2.2 10^3/uL (1.4-6.5); Hematocrit 38.2 % (37.0-47.0); Hemoglobin 13.1 g/dL (12.0-16.0); Mean Corp Hgb Conc. 34.3 g/dL (33.0-37.0); Mean Corpuscular Hgb 30.5 pg (27.0-31.0); Mean Corpuscular Volume 88.8 fL (81.0-99.0); Mean Platelet Volume 9.2 fL (7.4-10.4); Nucleated Red Blood Cells % 0 %; Platelet Count 245 10^3/uL (130-400); Red Cell Dist. Width 15.4 % (11.5-14.5)
[2024-02-25 15:51] LABS: ALT (SGPT) 24 U/L (0-35); AST (SGOT) 25 U/L (14-36); Albumin 4.3 g/dl (3.5-5.0); Alkaline Phosphatase 46 U/L (38-126); Blood Urea Nitrogen 15 mg/dl (7-17); Calcium 9.3 mg/dl (8.4-10.2); Carbon Dioxide 26 mmol/L (22-30); Chloride 104 mmol/L (98-107); Glucose 113 mg/dl (70-99); Potassium 4.3 mmol/L (3.5-5.1); Sodium 143 mmol/L (135-145); Total Bilirubin 0.6 mg/dl (0.2-1.3); Total Protein 6.5 g/dl (6.3-8.2); eGFR 58.39
[2024-02-25 16:21] LABS: TSH 0.78 uIU/ml (0.47-4.68)
== END ==
LOC: HWLAB 13:38
PROVIDERS: ATTENDING PHYSICIAN Internal Medicine Hematology & Oncology; FAMILY PHYSICIAN Internal Medicine
DX: C34.11 Malignant neoplasm of upper lobe, right bronchus or lung (principal); E78.5 Hyperlipidemia, unspecified
CPT/HCPCS: 36415; 80053; 84443; 85025

== ENCOUNTER → 2024-03-08 14:03 | Outpatient (REF) | payer MEDICARE, SELFPAY | LOC: HWRAD 14:03 | PROVIDERS: ATTENDING PHYSICIAN Internal Medicine Critical Care Medicine; FAMILY PHYSICIAN Internal Medicine | DX: C34.90 Malignant neoplasm of unspecified part of unspecified bronchus or lung (principal) | CPT/HCPCS: 71250 ==

== ENCOUNTER → 2024-03-17 13:09 | Outpatient (REF) | payer MEDICARE, SELFPAY ==
[2024-03-17 15:24] LABS: ALT (SGPT) 26 U/L (0-35); AST (SGOT) 28 U/L (14-36); Albumin 4.3 g/dl (3.5-5.0); Alkaline Phosphatase 48 U/L (38-126); Blood Urea Nitrogen 20 mg/dl (7-17); Calcium 9.4 mg/dl (8.4-10.2); Carbon Dioxide 24 mmol/L (22-30); Chloride 104 mmol/L (98-107); Glucose 112 mg/dl (70-99); Potassium 4.3 mmol/L (3.5-5.1); Sodium 142 mmol/L (135-145); Total Bilirubin 0.5 mg/dl (0.2-1.3); Total Protein 6.6 g/dl (6.3-8.2); eGFR 52.08
[2024-03-17 15:48] LABS: Hematocrit 33.4 % (37.0-47.0); Hemoglobin 11.8 g/dL (12.0-16.0); Mean Corp Hgb Conc. 35.3 g/dL (33.0-37.0); Mean Corpuscular Hgb 32.4 pg (27.0-31.0); Mean Corpuscular Volume 91.8 fL (81.0-99.0); Mean Platelet Volume 9.3 fL (7.4-10.4); Platelet Count 247 10^3/uL (130-400); Red Blood Cell Count 3.64 10^6/uL (4.20-5.40); Red Cell Dist. Width 16.4 % (11.5-14.5); White Blood Cell Count 4.4 10^3/uL (4.8-10.8)
[2024-03-17 15:52] LABS: TSH 2.37 uIU/ml (0.47-4.68)
[2024-03-17 16:17] LABS: Absolute Neutrophils -Man Diff 1.7 10^3/uL (1.4-6.5); Anisocytosis 1+; Atypical Lymphocytes 4 %; Band Neutrophils 1 % (0-3); Eosinophils 3 % (0-6); Lymphocytes 38 % (20-51); Microcytosis 1+; Monocytes 14 % (2-9); Normal RBC Morphology No; Platelets Checked Yes; Segmented Neutrophils 39 % (42-75); Total Cells Counted 100
[2024-03-17 16:18] LABS: Ovalocytes 1+; Poikilocytosis Slight
== END ==
LOC: HWLAB 13:09
PROVIDERS: ATTENDING PHYSICIAN Internal Medicine Hematology & Oncology; FAMILY PHYSICIAN Internal Medicine
DX: C34.11 Malignant neoplasm of upper lobe, right bronchus or lung (principal); I10 Essential (primary) hypertension
CPT/HCPCS: 36415; 80053; 84443; 85025

== ENCOUNTER → 2024-05-02 10:08 | Outpatient (REF) | payer MEDICARE, SELFPAY ==
[2024-05-02 11:20] LABS: % Basophils 1.4 % (0-2); % Eosinophils 1.6 % (0-6); % Immature Granulocytes 0.2 % (0-0.5); % Lymphocytes 44.5 % (20.5-51.1); % Monocytes 11.1 % (1.7-9.3); % Neutrophils 41.2 % (42.2-75.2); Absolute Basophils 0.1 10^3/uL (0-0.2); Absolute Eosinophils 0.1 10^3/uL (0-0.7); Absolute Lymphocytes 2.8 10^3/uL (1.2-3.4); Absolute Monocytes 0.7 10^3/uL (0.1-0.6); Absolute Neutrophils 2.6 10^3/uL (1.4-6.5); Hematocrit 41.4 % (37.0-47.0); Hemoglobin 13.5 g/dL (12.0-16.0); Mean Corp Hgb Conc. 32.6 g/dL (33.0-37.0); Mean Corpuscular Hgb 31.5 pg (27.0-31.0); Mean Corpuscular Volume 96.7 fL (81.0-99.0); Mean Platelet Volume 9.4 fL (7.4-10.4); Nucleated Red Blood Cells % 0 %; Platelet Count 265 10^3/uL (130-400); Red Blood Cell Count 4.28 10^6/uL (4.20-5.40); White Blood Cell Count 6.3 10^3/uL (4.8-10.8)
[2024-05-02 11:42] LABS: ALT (SGPT) 17 U/L (0-35); AST (SGOT) 25 U/L (14-36); Albumin 4.2 g/dl (3.5-5.0); Alkaline Phosphatase 43 U/L (38-126); Blood Urea Nitrogen 20 mg/dl (7-17); Calcium 9.3 mg/dl (8.4-10.2); Carbon Dioxide 24 mmol/L (22-30); Chloride 103 mmol/L (98-107); Glucose 108 mg/dl (70-99); Potassium 4.4 mmol/L (3.5-5.1); Sodium 137 mmol/L (135-145); Total Bilirubin 0.7 mg/dl (0.2-1.3); Total Protein 6.6 g/dl (6.3-8.2); eGFR 52.08
[2024-05-02 12:09] LABS: TSH 0.49 uIU/ml (0.47-4.68)
== END ==
LOC: HWLAB 10:08
PROVIDERS: ATTENDING PHYSICIAN Internal Medicine Hematology & Oncology; FAMILY PHYSICIAN Internal Medicine
DX: C34.11 Malignant neoplasm of upper lobe, right bronchus or lung (principal); I10 Essential (primary) hypertension
CPT/HCPCS: 36415; 80053; 84443; 85025

== ENCOUNTER → 2024-05-06 10:32 | Outpatient (REF) | payer MEDICARE, SELFPAY | LOC: HWRAD 10:32 | PROVIDERS: ATTENDING PHYSICIAN Internal Medicine Hematology & Oncology; FAMILY PHYSICIAN Internal Medicine | DX: C34.11 Malignant neoplasm of upper lobe, right bronchus or lung (principal) | CPT/HCPCS: 71046 ==

== ENCOUNTER → 2024-05-20 13:04 | Outpatient (REF) | payer MEDICARE, SELFPAY ==
[2024-05-20 16:17] LABS: % Basophils 1.2 % (0-2); % Eosinophils 1.6 % (0-6); % Immature Granulocytes 0.1 % (0-0.5); % Lymphocytes 41.8 % (20.5-51.1); % Monocytes 8.5 % (1.7-9.3); % Neutrophils 46.8 % (42.2-75.2); Absolute Basophils 0.1 10^3/uL (0-0.2); Absolute Eosinophils 0.1 10^3/uL (0-0.7); Absolute Lymphocytes 3.1 10^3/uL (1.2-3.4); Absolute Monocytes 0.6 10^3/uL (0.1-0.6); Absolute Neutrophils 3.5 10^3/uL (1.4-6.5); Hematocrit 42.5 % (37.0-47.0); Hemoglobin 13.9 g/dL (12.0-16.0); Mean Corp Hgb Conc. 32.7 g/dL (33.0-37.0); Mean Corpuscular Hgb 30.8 pg (27.0-31.0); Mean Corpuscular Volume 94.2 fL (81.0-99.0); Mean Platelet Volume 9.5 fL (7.4-10.4); Nucleated Red Blood Cells % 0 %; Platelet Count 276 10^3/uL (130-400); Red Blood Cell Count 4.51 10^6/uL (4.20-5.40); Red Cell Dist. Width 11.4 % (11.5-14.5); White Blood Cell Count 7.4 10^3/uL (4.8-10.8)
[2024-05-20 16:34] LABS: ALT (SGPT) 14 U/L (0-35); AST (SGOT) 23 U/L (14-36); Albumin 4.3 g/dl (3.5-5.0); Alkaline Phosphatase 52 U/L (38-126); Blood Urea Nitrogen 17 mg/dl (7-17); Calcium 9.1 mg/dl (8.4-10.2); Carbon Dioxide 25 mmol/L (22-30); Chloride 103 mmol/L (98-107); Glucose 96 mg/dl (70-99); Potassium 4.5 mmol/L (3.5-5.1); Sodium 139 mmol/L (135-145); Total Bilirubin 0.4 mg/dl (0.2-1.3); Total Protein 6.7 g/dl (6.3-8.2); eGFR 46.91
[2024-05-20 17:04] LABS: TSH 0.55 uIU/ml (0.47-4.68)
== END ==
LOC: HWLAB 13:04
PROVIDERS: ATTENDING PHYSICIAN Internal Medicine Hematology & Oncology; FAMILY PHYSICIAN Internal Medicine
DX: C34.11 Malignant neoplasm of upper lobe, right bronchus or lung (principal); I10 Essential (primary) hypertension
CPT/HCPCS: 36415; 80053; 84443; 85025

== ENCOUNTER → 2024-06-10 13:00 | Outpatient (REF) | payer MEDICARE, SELFPAY ==
[2024-06-10 15:43] LABS: % Basophils 1.2 % (0-2); % Eosinophils 1.8 % (0-6); % Immature Granulocytes 0.1 % (0-0.5); % Lymphocytes 45.7 % (20.5-51.1); % Monocytes 8.8 % (1.7-9.3); % Neutrophils 42.4 % (42.2-75.2); Absolute Basophils 0.1 10^3/uL (0-0.2); Absolute Eosinophils 0.1 10^3/uL (0-0.7); Absolute Lymphocytes 3.4 10^3/uL (1.2-3.4); Absolute Monocytes 0.7 10^3/uL (0.1-0.6); Absolute Neutrophils 3.1 10^3/uL (1.4-6.5); Hemoglobin 13.9 g/dL (12.0-16.0); Mean Corp Hgb Conc. 33.9 g/dL (33.0-37.0); Mean Corpuscular Hgb 31.1 pg (27.0-31.0); Mean Corpuscular Volume 91.7 fL (81.0-99.0); Mean Platelet Volume 9.4 fL (7.4-10.4); Nucleated Red Blood Cells % 0 %; Platelet Count 293 10^3/uL (130-400); Red Blood Cell Count 4.47 10^6/uL (4.20-5.40); Red Cell Dist. Width 11.7 % (11.5-14.5); White Blood Cell Count 7.4 10^3/uL (4.8-10.8)
[2024-06-10 15:49] LABS: ALT (SGPT) 13 U/L (0-35); AST (SGOT) 23 U/L (14-36); Alkaline Phosphatase 61 U/L (38-126); Blood Urea Nitrogen 24 mg/dl (7-17); Calcium 9.3 mg/dl (8.4-10.2); Carbon Dioxide 29 mmol/L (22-30); Chloride 105 mmol/L (98-107); Glucose 100 mg/dl (70-99); Potassium 4.4 mmol/L (3.5-5.1); Sodium 139 mmol/L (135-145); Total Bilirubin 0.5 mg/dl (0.2-1.3); Total Protein 6.4 g/dl (6.3-8.2); eGFR 46.91
[2024-06-10 16:20] LABS: TSH 0.66 uIU/ml (0.47-4.68)
== END ==
LOC: HWLAB 13:00
PROVIDERS: ATTENDING PHYSICIAN Internal Medicine Hematology & Oncology; FAMILY PHYSICIAN Internal Medicine
DX: C34.11 Malignant neoplasm of upper lobe, right bronchus or lung (principal); I10 Essential (primary) hypertension
CPT/HCPCS: 36415; 80053; 84443; 85025

== ENCOUNTER → 2024-07-01 09:11 | Outpatient (REF) | payer MEDICARE, SELFPAY ==
[2024-07-01 10:26] LABS: % Basophils 1.3 % (0-2); % Eosinophils 1.3 % (0-6); % Immature Granulocytes 0.2 % (0-0.5); % Lymphocytes 46.2 % (20.5-51.1); % Monocytes 8.7 % (1.7-9.3); % Neutrophils 42.3 % (42.2-75.2); Absolute Basophils 0.1 10^3/uL (0-0.2); Absolute Eosinophils 0.1 10^3/uL (0-0.7); Absolute Lymphocytes 2.8 10^3/uL (1.2-3.4); Absolute Monocytes 0.5 10^3/uL (0.1-0.6); Absolute Neutrophils 2.6 10^3/uL (1.4-6.5); Hemoglobin 14.6 g/dL (12.0-16.0); Mean Corp Hgb Conc. 33.2 g/dL (33.0-37.0); Mean Corpuscular Hgb 30.1 pg (27.0-31.0); Mean Corpuscular Volume 90.7 fL (81.0-99.0); Mean Platelet Volume 9.3 fL (7.4-10.4); Nucleated Red Blood Cells % 0 %; Platelet Count 283 10^3/uL (130-400); Red Blood Cell Count 4.85 10^6/uL (4.20-5.40); Red Cell Dist. Width 11.9 % (11.5-14.5); White Blood Cell Count 6.1 10^3/uL (4.8-10.8)
[2024-07-01 10:58] LABS: ALT (SGPT) 18 U/L (0-35); AST (SGOT) 25 U/L (14-36); Albumin 4.4 g/dl (3.5-5.0); Alkaline Phosphatase 55 U/L (38-126); Blood Urea Nitrogen 30 mg/dl (7-17); Calcium 9.8 mg/dl (8.4-10.2); Carbon Dioxide 26 mmol/L (22-30); Chloride 103 mmol/L (98-107); Glucose 98 mg/dl (70-99); Potassium 4.5 mmol/L (3.5-5.1); Sodium 139 mmol/L (135-145); Total Bilirubin 0.8 mg/dl (0.2-1.3); Total Protein 6.8 g/dl (6.3-8.2); eGFR 38.99
[2024-07-01 11:12] LABS: Free T4 1.63 ng/dl (0.78-2.19)
[2024-07-01 11:26] LABS: TSH 1.19 uIU/ml (0.47-4.68)
[2024-07-02 23:14] LABS: Total T3 (Sendout) 105 ng/dL (80-200)
== END ==
LOC: REG 09:11
PROVIDERS: ATTENDING PHYSICIAN Internal Medicine Hematology & Oncology; FAMILY PHYSICIAN Internal Medicine
DX: C34.11 Malignant neoplasm of upper lobe, right bronchus or lung (principal); I10 Essential (primary) hypertension
CPT/HCPCS: 36415; 80053; 84439; 84443; 84480; 85025

== ENCOUNTER → 2024-07-22 13:13 | Outpatient (REF) | payer MEDICARE, SELFPAY ==
[2024-07-22 15:32] LABS: % Basophils 0.7 % (0-2); % Eosinophils 1.6 % (0-6); % Immature Granulocytes 0.4 % (0-0.5); % Lymphocytes 42.5 % (20.5-51.1); % Neutrophils 46.8 % (42.2-75.2); Absolute Basophils 0.1 10^3/uL (0-0.2); Absolute Eosinophils 0.1 10^3/uL (0-0.7); Absolute Lymphocytes 3.5 10^3/uL (1.2-3.4); Absolute Monocytes 0.7 10^3/uL (0.1-0.6); Absolute Neutrophils 3.9 10^3/uL (1.4-6.5); Hematocrit 41.8 % (37.0-47.0); Hemoglobin 14.2 g/dL (12.0-16.0); Mean Corpuscular Volume 88.4 fL (81.0-99.0); Mean Platelet Volume 9.2 fL (7.4-10.4); Nucleated Red Blood Cells % 0 %; Platelet Count 309 10^3/uL (130-400); Red Blood Cell Count 4.73 10^6/uL (4.20-5.40); Red Cell Dist. Width 12.6 % (11.5-14.5); White Blood Cell Count 8.2 10^3/uL (4.8-10.8)
[2024-07-22 15:41] LABS: ALT (SGPT) 18 U/L (0-35); AST (SGOT) 24 U/L (14-36); Albumin 4.3 g/dl (3.5-5.0); Alkaline Phosphatase 60 U/L (38-126); Blood Urea Nitrogen 24 mg/dl (7-17); Calcium 9.3 mg/dl (8.4-10.2); Carbon Dioxide 26 mmol/L (22-30); Chloride 104 mmol/L (98-107); Glucose 98 mg/dl (70-99); Potassium 4.6 mmol/L (3.5-5.1); Sodium 138 mmol/L (135-145); Total Bilirubin 0.8 mg/dl (0.2-1.3); Total Protein 6.8 g/dl (6.3-8.2); eGFR 46.91
[2024-07-22 15:58] LABS: Free T4 1.98 ng/dl (0.78-2.19)
[2024-07-22 16:11] LABS: TSH 0.61 uIU/ml (0.47-4.68)
[2024-07-24 15:04] LABS: Total T3 (Sendout) 109 ng/dL (80-200)
== END ==
LOC: HWLAB 13:13
PROVIDERS: ATTENDING PHYSICIAN Internal Medicine Hematology & Oncology; FAMILY PHYSICIAN Internal Medicine
DX: C34.11 Malignant neoplasm of upper lobe, right bronchus or lung (principal); I10 Essential (primary) hypertension
CPT/HCPCS: 36415; 80053; 84439; 84443; 84480; 85025

== ENCOUNTER → 2024-08-12 12:01 | Outpatient (REF) | payer MEDICARE, SELFPAY ==
[2024-08-12 16:25] LABS: % Basophils 0.9 % (0-2); % Eosinophils 1.5 % (0-6); % Immature Granulocytes 0.2 % (0-0.5); % Lymphocytes 38.3 % (20.5-51.1); % Monocytes 8.3 % (1.7-9.3); % Neutrophils 50.8 % (42.2-75.2); Absolute Basophils 0.1 10^3/uL (0-0.2); Absolute Eosinophils 0.1 10^3/uL (0-0.7); Absolute Lymphocytes 3.3 10^3/uL (1.2-3.4); Absolute Monocytes 0.7 10^3/uL (0.1-0.6); Absolute Neutrophils 4.3 10^3/uL (1.4-6.5); Hematocrit 42.5 % (37.0-47.0); Hemoglobin 14.1 g/dL (12.0-16.0); Mean Corp Hgb Conc. 33.2 g/dL (33.0-37.0); Mean Corpuscular Hgb 29.6 pg (27.0-31.0); Mean Corpuscular Volume 89.1 fL (81.0-99.0); Mean Platelet Volume 9.4 fL (7.4-10.4); Nucleated Red Blood Cells % 0 %; Platelet Count 321 10^3/uL (130-400); Red Blood Cell Count 4.77 10^6/uL (4.20-5.40); Red Cell Dist. Width 13.3 % (11.5-14.5); White Blood Cell Count 8.5 10^3/uL (4.8-10.8)
[2024-08-12 16:32] LABS: ALT (SGPT) 18 U/L (0-35); AST (SGOT) 26 U/L (14-36); Albumin 4.7 g/dl (3.5-5.0); Alkaline Phosphatase 70 U/L (38-126); Blood Urea Nitrogen 22 mg/dl (7-17); Calcium 9.3 mg/dl (8.4-10.2); Carbon Dioxide 25 mmol/L (22-30); Chloride 106 mmol/L (98-107); Glucose 104 mg/dl (70-99); Potassium 4.5 mmol/L (3.5-5.1); Sodium 142 mmol/L (135-145); Total Bilirubin 0.8 mg/dl (0.2-1.3); eGFR 52.08
[2024-08-12 16:51] LABS: Free T4 2.07 ng/dl (0.78-2.19)
[2024-08-12 17:04] LABS: TSH 0.38 uIU/ml (0.47-4.68)
[2024-08-14 18:26] LABS: Total T3 (Sendout) 124 ng/dL (80-200)
== END ==
LOC: HWLAB 12:01
PROVIDERS: ATTENDING PHYSICIAN Internal Medicine Hematology & Oncology; FAMILY PHYSICIAN Internal Medicine
DX: C34.11 Malignant neoplasm of upper lobe, right bronchus or lung (principal); I10 Essential (primary) hypertension
CPT/HCPCS: 36415; 80053; 84439; 84443; 84480; 85025

== ENCOUNTER → 2024-09-02 13:02 | Outpatient (REF) | payer MEDICARE, SELFPAY ==
[2024-09-02 17:01] LABS: % Eosinophils 1.4 % (0-6); % Immature Granulocytes 0.2 % (0-0.5); % Lymphocytes 38.5 % (20.5-51.1); % Monocytes 8.6 % (1.7-9.3); % Neutrophils 50.3 % (42.2-75.2); Absolute Basophils 0.1 10^3/uL (0-0.2); Absolute Eosinophils 0.1 10^3/uL (0-0.7); Absolute Lymphocytes 3.3 10^3/uL (1.2-3.4); Absolute Monocytes 0.7 10^3/uL (0.1-0.6); Absolute Neutrophils 4.3 10^3/uL (1.4-6.5); Hematocrit 43.8 % (37.0-47.0); Hemoglobin 14.9 g/dL (12.0-16.0); Mean Corpuscular Hgb 30.2 pg (27.0-31.0); Mean Corpuscular Volume 88.8 fL (81.0-99.0); Mean Platelet Volume 9.7 fL (7.4-10.4); Nucleated Red Blood Cells % 0 %; Platelet Count 339 10^3/uL (130-400); Red Blood Cell Count 4.93 10^6/uL (4.20-5.40); Red Cell Dist. Width 13.5 % (11.5-14.5); White Blood Cell Count 8.6 10^3/uL (4.8-10.8)
[2024-09-02 17:18] LABS: ALT (SGPT) 19 U/L (0-35); AST (SGOT) 25 U/L (14-36); Albumin 4.8 g/dl (3.5-5.0); Alkaline Phosphatase 59 U/L (38-126); Blood Urea Nitrogen 23 mg/dl (7-17); Calcium 9.6 mg/dl (8.4-10.2); Carbon Dioxide 24 mmol/L (22-30); Chloride 106 mmol/L (98-107); Glucose 106 mg/dl (70-99); Potassium 4.4 mmol/L (3.5-5.1); Sodium 142 mmol/L (135-145); eGFR 52.08
[2024-09-02 17:41] LABS: Free T4 2.14 ng/dl (0.78-2.19)
[2024-09-02 17:48] LABS: TSH 0.08 uIU/ml (0.47-4.68)
[2024-09-05 02:48] LABS: Total T3 (Sendout) 129 ng/dL (80-200)
== END ==
LOC: HWLAB 13:02
PROVIDERS: ATTENDING PHYSICIAN Internal Medicine Hematology & Oncology; FAMILY PHYSICIAN Internal Medicine
DX: C34.11 Malignant neoplasm of upper lobe, right bronchus or lung (principal); I10 Essential (primary) hypertension
CPT/HCPCS: 36415; 80053; 84439; 84443; 84480; 85025

== ENCOUNTER → 2024-09-06 12:55 | Outpatient (REF) | payer MEDICARE, SELFPAY | LOC: HWRAD 12:55 | PROVIDERS: ATTENDING PHYSICIAN Internal Medicine Critical Care Medicine; FAMILY PHYSICIAN Internal Medicine | DX: Z85.118 Personal history of other malignant neoplasm of bronchus and lung (principal) | CPT/HCPCS: 71250 ==

== ENCOUNTER → 2024-09-27 08:27 | Outpatient (REF) | payer MEDICARE, SELFPAY ==
[2024-09-27 09:20] LABS: Hematocrit 41.9 % (37.0-47.0); Hemoglobin 14.1 g/dL (12.0-16.0); Mean Corp Hgb Conc. 33.7 g/dL (33.0-37.0); Mean Corpuscular Volume 89.1 fL (81.0-99.0); Mean Platelet Volume 9.3 fL (7.4-10.4); Platelet Count 354 10^3/uL (130-400); Red Cell Dist. Width 13.2 % (11.5-14.5); White Blood Cell Count 12.4 10^3/uL (4.8-10.8)
[2024-09-27 09:41] LABS: ALT (SGPT) 15 U/L (0-35); AST (SGOT) 16 U/L (14-36); Albumin 4.2 g/dl (3.5-5.0); Alkaline Phosphatase 48 U/L (38-126); Blood Urea Nitrogen 27 mg/dl (7-17); Calcium 8.9 mg/dl (8.4-10.2); Carbon Dioxide 27 mmol/L (22-30); Chloride 109 mmol/L (98-107); Glucose 97 mg/dl (70-99); Potassium 3.5 mmol/L (3.5-5.1); Sodium 143 mmol/L (135-145); Total Bilirubin 0.6 mg/dl (0.2-1.3); Total Protein 6.5 g/dl (6.3-8.2); eGFR 52.08
[2024-09-27 09:52] LABS: Free T4 1.65 ng/dl (0.78-2.19)
[2024-09-27 10:06] LABS: TSH 1.97 uIU/ml (0.47-4.68)
[2024-09-27 13:36] LABS: % Basophils 0.6 % (0-2); % Immature Granulocytes 0.6 % (0-0.5); % Lymphocytes 44.8 % (20.5-51.1); % Monocytes 6.8 % (1.7-9.3); % Neutrophils 46.2 % (42.2-75.2); Absolute Basophils 0.1 10^3/uL (0-0.2); Absolute Eosinophils 0.1 10^3/uL (0-0.7); Absolute Immature Granulocytes 0.1 10^3/uL (0-0.05); Absolute Lymphocytes 5.6 10^3/uL (1.2-3.4); Absolute Monocytes 0.9 10^3/uL (0.1-0.6); Absolute Neutrophils 5.7 10^3/uL (1.4-6.5); Nucleated Red Blood Cells % 0 %
[2024-09-28 23:58] LABS: Total T3 (Sendout) 54 ng/dL (80-200)
== END ==
LOC: REG 08:27
PROVIDERS: ATTENDING PHYSICIAN Internal Medicine Hematology & Oncology; FAMILY PHYSICIAN Internal Medicine
DX: C34.11 Malignant neoplasm of upper lobe, right bronchus or lung (principal); I10 Essential (primary) hypertension
CPT/HCPCS: 36415; 80053; 84439; 84443; 84480; 85025